=== PATIENT | female | born 1940 | race Caucasian/White ===

== ENCOUNTER 2018-03-13 13:08 | Inpatient (IN) | payer MEDICARE, BC ==
--- NOTE | 2018-03-13 13:31 | RADIOLOGY REPORT (SQ) ---
EXAM DESCRIPTION: CT HEAD WITHOUT COMPLETED DATE/TIME: 03/13/2018 1:17 pm REASON FOR STUDY: bed mp stroke alert COMPARISON: None. TECHNIQUE: Axial images acquired through the brain without intravenous contrast. Images reviewed wi th bone, brain and subdural windows. Additional sagittal and coronal reconstructions were generated. Images stored on PACS. All CT scanners at this facility use dose modulation, iterative reconstruction, and/or weight based d osing when appropriate to reduce radiation dose to as low as reasonably achievable (ALARA). [facility]: Dose Right [facility]: CareDose [facility]: Dose Right [facility]: Teradose 4D [facility]: [employer] RADIATION DOSE: CT Rad equipment meets quality standard of care and radiation dose reduction techniq ues were employed. CTDIvol: 53.2 mGy. DLP: 1017 mGy-cm. mGy. LIMITATIONS: None. FINDINGS: VENTRICLES: Normal size and contour. CEREBRUM: Bilateral occipital low low-attenuation, with loss of edwards-white junction and sulcal efface ment. These findings are worrisome for bilateral acute or early subacute infarcts, nonhemorrhagic. There is low attenuation in the right lateral thalamus, posterior limb internal capsule on axial imag e 18, which could also be a subacute infarct, nonhemorrhagic. Elsewhere, extensive low attenuation in the bilateral deep periventricular white matter is present wi th multiple lacunar infarcts in the basal ganglia and right thalamus likely chronic small vessel dise ase. No definite CT evidence of acute intracranial hemorrhage. No midline shift. Findings were discussed with Fanny Garay in the emergency room, 1318 hours 03/13/[address] strok e alert CEREBELLUM: Low attenuation in the left cerebellar hemisphere could represent a subacute nonhemorrhag ic infarct. No posterior fossa midline shift. 4th ventricle normal. EXTRAAXIAL SPACES: No fluid collections. No masses. ORBITS AND GLOBE: No intra- or extraconal masses. Normal contour of globe without masses. CALVARIUM: No fracture. PARANASAL SINUSES: No fluid or mucosal thickening. SOFT TISSUES: No mass or hematoma. OTHER: No other significant finding. IMPRESSION: Acute or early subacute posterior circulation infarcts in the left cerebellar hemisphere , bilateral occipital lobes, right lateral thalamus and posterior limb internal capsule. EVIDENCE OF ACUTE STROKE: Yes COMMENT: Pertinent findings on the imaging study reported as a CRITICAL RESULT to RETA CHRISTIE PPI at13:18 on 03/13/2018. Category of Critical Result: CT code stroke Quality ID # [id number]: Final reports with documentation of one or more dose reduction techniques (e.g., Au tomated exposure control, adjustment of the mA and/or kV according to patient size, use of iterative reconstruction technique) TECHNICAL DOCUMENTATION: JOB ID: [id number] [employer]- All Rights Reserved Reading location - IP/workstation name: [email or web address]
--- NOTE | 2018-03-13 13:42 | ER Document Report ---
ED Neuro Symptoms/Deficit - General Chief Complaint: S/S of Possible Stroke Stated Complaint: POSSIBLE STROKE Time Seen by Provider: 03/13/18 13:15 Mode of Arrival: Medic Information source: Patient, Relative Notes: Patient is a 78-year-old female with a history of multiple strokes who presents to the ER today for possible stroke. Patient has a history of hypertension, diabetes, hypothyroidism, spinal stenosis and GERD. Patient has some residual mild right-sided weakness from her history of multiple strokes. Patient is on Plavix and did take that today. Family member states that 3 days ago patient laid down for a nap and whenever she woke up she was very confused, generally weak all over and could not walk. Patient also had one episode of incontinence with her stool and urine. Patient had slurred speech and complained of a frontal headache. Family member states that she thought maybe it was some medication she takes as she does take Percocet for back pain due to her spinal stenosis, so she counted her medication and it did not seem like she had overdosed on anything. Family member states that intermittently she has been having episodes of this confusion, slurred speech, generalized weakness, and then for a few hours she will be "normal again." Family member states that today she woke up again confused complaining of a frontal headache, general weakness and could not walk around 8 AM this morning and so after a couple of hours that it did not resolve patient was brought to the emergency department by EMS. On arrival to the emergency department, patient's symptoms have all resolved and patient is alert and oriented 3 with no focal weakness, numbness or tingling. - Related Data Allergies/Adverse Reactions: Penicillins Allergy (Verified 03/13/18 14:42) Past Medical History - General Information source: Patient, Relative - Social History Smoking Status: Never Smoker Family History: Reviewed & Not Pertinent Review of Systems - Review of Systems Constitutional: No symptoms reported EENT: No symptoms reported Cardiovascular: No symptoms reported Respiratory: No symptoms reported Gastrointestinal: See HPI Genitourinary: See HPI Female Genitourinary: No symptoms reported Musculoskeletal: No symptoms reported Skin: No symptoms reported Hematologic/Lymphatic: No symptoms reported Neurological/Psychological: See HPI Physical Exam - Notes Notes: PHYSICAL EXAMINATION: GENERAL: Elderly, chronically ill-appearing, but in no acute distress. HEAD: Atraumatic, normocephalic. EYES: Pupils equal round and reactive to light, extraocular movements intact, sclera anicteric, conjunctiva are normal. ENT: ear canals without erythema or foreign body, TMs pearly montiel with good bony landmarks, nares patent, oropharynx clear without exudates. Moist mucous membranes. NECK: Normal range of motion, supple without lymphadenopathy LUNGS: CTAB and equal. No wheezes rales or rhonchi. HEART: Regular rate and rhythm without murmurs ABDOMEN: Soft, no tenderness. No guarding, no rebound BACK: no vertebral tenderness, normal ROM rectal: Decreased tone GI/: no CVA tenderness EXTREMITIES: Normal range of motion, no pitting edema. No cyanosis. NEUROLOGICAL: Mild right-sided weakness, otherwise cranial nerves grossly intact. Normal sensory/motor exams. Good and equal strength bilaterally, Kernig and Brudzinski's signs negative, Romberg's test normal, normal heel to dodd testing PSYCH: Normal mood, normal affect. SKIN: Warm, Dry, normal turgor, no rashes or lesions noted Course - Re-evaluation Re-evalutation: 03/13/18 15:46 Patient's NIH score is 0, neurological exam is normal except for chronic mild right-sided weakness. She has no facial droop. Initial head CT reveals an acute early subacute posterior circulation infarcts in the left cerebellar hemisphere, bilateral occipital lobes, right lateral thalamus and posterior limb internal capsule. CTA reports no large vessel occlusion. Chest x-ray normal today. Patient has had no further neurological symptoms here in the emergency department. She was able to stand and walk slowly to the bedside toilet. Patient refuses straight catheterization today. Patient is alert and oriented, answers questions appropriately. Daughter states that she is back to her baseline. I did initially have a concern for the spinal stenosis, story of acute incontinence with stool and urine, however upon further questioning it is clear that patient has had urinary and stool incontinence for some time. Patient had normal sensation on rectal exam today although decreased tone. She does not have any increased back pain. She has no numbness or tingling anywhere. I have low suspicion for cauda equina at this time and my attending agrees, and therefore MRI of the lumbar spine not performed at this time. Dr. Cuenca, hospitalist accepts admission at this time. Patient is not a candidate for TPA as her symptoms have all resolved and she is out of the 4-1/2 hour window. 03/13/18 17:07 03/13/18 17:10 03/13/18 17:55 - Laboratory Result Diagrams: 03/13/18 13:40 03/13/18 13:40 ED Alteplase Inc/Exc Criteria - Date/Time patient last known well: Date/Time: 3 days ago - Inclusion Criteria: 1: Patient presented to ED within 3 hours of acute ischemic stroke symptom onset ? -: No 2: Did baseline CT exclude intracranial hemorrhage and/or other risk factors? -: Yes 3: Is the age of the patient 18 years of age or greater? -: Yes : If any of the above questions are answered "NO" then stop, patient is not a candidate for Alteplase, : If all of the above questions are answered "YES" then continue with Exclusion Criteria. - Exclusion Criteria: 1: Is there evidence of intracranial hemorrhage on baseline CT? 2: Is there suspicion of subarachnoid hemorrhage (even if CT negative)? 3: Is there a history of serious head trauma, recent previous stroke or ID within 3 months? 4: Does the patient have a clinical presentation consistent with ID or post-ID pericarditis? 5: Is there history of intracranial hemorrhage? 6: On repeated measurement is Systolic BP greater than 185mmHg or Diastolic BP greater that 110 mmHg and is aggressive treatment needed to reduce blood pressure to these limits (e.g. constant infusion of an anti-hypertensive)? 7: Did the patient awake with stroke symptoms? 8: Has the patient had a lumbar puncture or an arterial puncture at a non- compressile site within 7 days? 9: With in the last 14 days did the patient have surgery or major trauma? 10: Is the patient or less than 2 weeks? 11: Was there any active bleeding or acute trauma? 12: Does the patient have intracranial neoplasm, arteriovenous malformation or aneurysm? 13: Does the patient have abnormal glucose (less than 50 or greater than 400mg/ dl)? Record glucose in Comment. 14: Patient has rapidly improving symptoms at the time Alteplase is to be Administered. 15: Does the patient have any risks for bleeding, including but not limited to: a.: Current use of Coumadin with PT greater than 15 seconds or INR greater than 1.7. b.: Current use of Pradaxa (Dabigatran). c.: Heparin administereed within the past 48 hours and PTT elevated. d.: Platelet count less than 100,000/mm. e.: Major surgery or serious trauma within 14 days. f.: Gastrointestinal or gynecological urinary bleeding within 14 days. g.: Myocardial Infarction (ID) within 3 months. : If the answer to any of the above questions is "YES" then stop, the patient is not a candidate for Alteplase. : If the answer to all of the above questions is "NO" then the patient may be eligible for the Administration of Alteplase. : If the patient is noted to have seizure activity at onset of Stroke symptoms; Consult Neurologist for further evaluation. - The patient is: -: Included and is eligible to receive Alteplase. *Initiate bed placement at higher level of care* Reviewd risks & benefits of thrombolytic therapy: I have reviewed the risks and benefits of thrombolytic therapy with the patient and/or his/her family. -: Excluded and not eligible to receive Alteplase for the above exclusions. -: Excluded and not eligible to receive Alteplase for other reasons (specify in comments): - Diagnosis of TIA: -: Patient presented with transient symptoms that are now resolved and no other neurologic findings are currently present. List symptoms in comments. -: Patient is NOT a candidate for tPA. -: ____(put name in comment) has been consulted for admission and continued evaluation of risk factor assessment. ED NIH Stroke Scale - NIH Stroke Scale *: 1. NIH scale should be completed with appropriate accompanying assessment tools. *: 2. The NIH should reflect what the patient is capable of doing and should not be coached by the clinician. 1a. Level of Consciousness: 0=Alert;keenly responsive -: 1=Drowsy -: 2=Obtunded -: 3=Coma/unresponsive or reflex to noxious stimuli. 1a. Responses: 0 1b. Orientation Questions: a. What month is it? -: b. How old are you? -: 0=Answers both questions correctly. -: 1=Answers one question correctly or patient is intubated or has orotracheal trauma. -: 2=Answers neither question correctly. 1b. Responses: 0 1c. Response to commands: a. Open and close eyes? -: b. Scow Derrick Operator and release hand? -: Credit is given despite weakness. Demonstration of task is permitted. Substitute command if hands cannot be used. -: 0=Performs both tasks correctly -: 1=Performs one task correctly -: 2=Performs neither task correctly 1c. Responses: 0 2. Gaze: Establish eye contact and instruct patient to "Follow my finger" -: 0=Normal -: 1=Partial gaze palsy. Gaze is abnormal in one or both eyes, but where forced deviation or total gaze paresis is not present. -: 2=Forced deviation or total gaze paresis. 2. Responses: 0 3. Visual [place]guiano: Sees fingers in all four quadrants. -: 0=No visual loss. -: 1=Partial hemianopsia. -: 2=Complete hemianopsia. -: 3=Bilateral hemianopsia (including Cortical blindness) 3. Responses: 0 4. Facial Movement: Instruct patient to: -: a. Show me your teeth -: b. Raise your eyebrows -: c. Close your eyes -: d. Smile -: 0=Normal symmetrical movement -: 1=Minor paralysis (flattened nasolabial fold, asymmetry on smiling). -: 2=Partial paralysis (total or near total paralysis of lower face). -: 3=Complete paralysis of upper and lower face 4. Responses: 0 5. Motor functions (left arm): Alternate sides and extend each arm with palms down (90 degrees if sitting or 45 degrees for supine). -: 0=No drift;limb holds for full 10 seconds. -: 1=Drift; limb holds but drifts down before full 10 seconds, but does not hit bed. -: 2=Some effort against gravity; limb cannot get to or maintain position. -: 3=No effort against gravity; limb falls. -: 4=No movement. -: UN=Amputation, joint fusion, explain in comments. 5. Responses (left arm): 0 5. Motor Functions (right arm): Alternate sides and extend each arm with palms down (90 degrees if sitting or 45 degrees for supine). -: 0=No drift;limb holds for full 10 seconds. -: 1=Drift; limb holds but drifts down before full 10 seconds, but does not hit bed. -: 2=Some effort against gravity; limb cannot get to or maintain position. -: 3=No effort against gravity; limb falls. -: 4=No movement. -: UN=Amputation, joint fusion, explain in comments. 5. Responses (right arm): 0 6. Motor Functions (left leg): With patient lying supine, alternate sides and extend each leg (30 degrees always while supine). -: 0=No drift, leg holds position for full 5 seconds -: 1=Drift; leg falls before full 5 seconds but does not hit bed. -: 2=Some effort against gravity, leg falls to bed but some effort against gravity. -: 3=No effort against gravity, leg falls to bed immediately. -: 4=No movement. -: UN=Amputation, joint fusion; explain in comments. 6. Responses (left leg): 0 6. Motor Functions (right leg): With patient lying supine, alternate sides and extend each leg (30 degrees always while supine). -: 0=No drift, leg holds position for full 5 seconds -: 1=Drift; leg falls before full 5 seconds but does not hit bed. -: 2=Some effort against gravity, leg falls to bed but some effort against gravity. -: 3=No effort against gravity, leg falls to bed immediately. -: 4=No movement. -: UN=Amputation, joint fusion; explain in comments. 6. Responses (right leg): 0 7. Limb Ataxia: With eyes open instruct patient to: -: a. "Touch your finger to your nose". -: b. "Touch your heel to your dodd" -: 0=Absent -: 1=Present in one limb. -: 2=Present in two limbs. -: UN=Amputation or joint fusion; explain in comments. 7. Responses: 0 8. Sensory: Test sensation using pinprick or noxious stimuli. Test as many body parts as possible. -: 0=Normal;no sensory loss -: 1=Mile to moderate sensory loss (patient feels pin prick but is less sharp on affected side). -: 2=Severe or total sensory loss. 8. Responses: 0 9. Best Language: Instruct patient to: -: a. "Describe what you see in this picture." -: b. "Name the items in this picture." -: c. "Read these sentences." -: 0=No aphasia, normal -: 1=Mild to moderate aphasia. -: 2=Severe aphasia -: 3=Mute, global aphasia, no usable speech or auditory comprehension. 9. Responses: 0 10. Articulation, Dysarthia: Instruct patient to: -: "Read these words" or "Repeat these words" -: 0=Normal -: 1=Mild to moderate; patient may slur some words but can be understood without difficulty. -: 2=Severe; patients speech so slurred as to be unintelligible in the absence of dysphasia. -: UN=Intubated or other physical barrier, explain in comments. 10. Responses: 0 11. Extinction or inattention: 0=No abnormality -: 1= Visual, tactile, auditory, spatial, or personal inattention or extinction to bilateral simulation in one or the sensory modalities. -: 2=Profound mick-inattention or mick-inattention to more than one modality; does not recognize own hand. 11. Responses: 0 Total Score: 0 Discharge - Discharge Clinical Impression: TIA (transient ischemic attack) Condition: Stable Disposition: ADMITTED INPATIENT Admitting Provider: Hospitalist - swayze Unit Admitted: Telemetry
--- NOTE | 2018-03-13 13:42 | RADIOLOGY REPORT (SQ) ---
EXAM DESCRIPTION: CHEST SINGLE VIEW COMPLETED DATE/TIME: 03/13/2018 1:19 pm REASON FOR STUDY: bed mp stroke alert COMPARISON: None. EXAM PARAMETERS: NUMBER OF VIEWS: One view. TECHNIQUE: Single frontal radiographic view of the chest acquired. RADIATION DOSE: NA LIMITATIONS: Artifact from clothing FINDINGS: LUNGS AND PLEURA: No opacities, masses or pneumothorax. No pleural effusion. MEDIASTINUM AND HILAR STRUCTURES: No masses. Contour normal. HEART AND VASCULAR STRUCTURES: Heart normal in size. Normal vasculature. BONES: No acute findings. HARDWARE: None in the chest. OTHER: No other significant finding. IMPRESSION: NO ACUTE RADIOGRAPHIC FINDING IN THE CHEST. TECHNICAL DOCUMENTATION: JOB ID: [id number] [employer]- All Rights Reserved Reading location - IP/workstation name: [email or web address]
[2018-03-13 14:24] LABS: ALANINE AMINOTRANSFERASE 19 U/L (9-52); ALBUMIN 4.1 g/dL (3.5-5.0); ALKALINE PHOSPHATASE 56 U/L (38-126); ANION GAP 13 (5-19); ASPARTATE AMINO TRANSFERASE 22 U/L (14-36); BILIRUBIN,DIRECT 0.5 mg/dL (0.0-0.4); BILIRUBIN,TOTAL 0.5 mg/dL (0.2-1.3); BLOOD UREA NITROGEN 13 mg/dL (7-20); CALCIUM 9.9 mg/dL (8.4-10.2); CARBON DIOXIDE 23 mmol/L (22-30); CHLORIDE 108 mmol/L (98-107); CREATINE KINASE 41 U/L (30-135); GLUCOSE 96 mg/dL (75-110); POTASSIUM 4.3 mmol/L (3.6-5.0); SODIUM 143.9 mmol/L (137-145); TOTAL PROTEIN 7.6 g/dL (6.3-8.2)
[2018-03-13 14:33] LABS: ABSOLUTE BASOPHILS # (AUTO) 0.1 10^3/uL (0.0-0.2); ABSOLUTE EOSINOPHILS # (AUTO) 0.1 10^3/uL (0.0-0.6); ABSOLUTE LYMPHOCYTES (AUTO) 1.6 10^3/uL (0.5-4.7); ABSOLUTE MONOCYTES (AUTO) 0.4 10^3/uL (0.1-1.4); ABSOLUTE NEUT (AUTO) 9.4 10^3/uL (1.7-8.2); BASOPHILS % (AUTO) 0.5 % (0-2); EOSINOPHILS % (AUTO) 0.5 % (0-6); HEMATOCRIT 40.3 % (36.0-47.0); HEMOGLOBIN 13.2 g/dL (12.0-15.5); LYMPHOCYTES % (AUTO) 13.7 % (13-45); MEAN CORPUSCULAR HEMOGLOBIN 30.3 pg (27.0-33.4); MEAN CORPUSCULAR HGB CONC 32.8 g/dL (32.0-36.0); MEAN CORPUSCULAR VOLUME 93 fl (80-97); MONOCYTES % (AUTO) 3.9 % (3-13); PLATELET COUNT 308 10^3/uL (150-450); RED BLOOD COUNT 4.35 10^6/uL (3.72-5.28); RED CELL DISTRIBUTION WIDTH 13.8 % (11.5-14.0); SEGMENTED NEUTROPHILS % (AUTO) 81.4 % (42-78); TOTAL CELLS COUNTED % (AUTO) 100 %; WHITE BLOOD COUNT 11.5 10^3/uL (4.0-10.5)
[2018-03-13 14:38] LABS: TROPONIN I < 0.012 ng/mL
[2018-03-13 15:02] LABS: INTERNATIONAL RATION (INR) 0.92; PROTHROMBIN TIME 12.8 SEC (11.4-15.4)
[2018-03-13 15:03] LABS: PARTIAL THROMBOPLASTIN TIME 25.3 SEC (23.5-35.8)
--- NOTE | 2018-03-13 15:38 | RADIOLOGY REPORT (SQ) ---
EXAM DESCRIPTION: CTA HEAD COMPLETED DATE/TIME: 03/13/2018 3:22 pm REASON FOR STUDY: subacute stroke on CT, large vessel occlusion? COMPARISON: CT brain 03/13/2018 TECHNIQUE: Post IV contrast scanning, thin section axial imaging through the brain to evaluate the a rterial structures. Source and MIP images are saved and reviewed on PACS. Advanced 3D imaging as volume-rendering, MIPs, SSD performed? yes All CT scanners at this facility use dose modulation, iterative reconstruction, and/or weight based d osing when appropriate to reduce radiation dose to as low as reasonably achievable (ALARA). [facility]: Dose Right [facility]: CareDose [facility]: Dose Right [facility]: Teradose 4D [facility]: [employer] CONTRAST TYPE AND DOSE: contrast/concentration: Isovue 370.00 mg/ml; Total Contrast Delivered: 70.0 ml; Total Saline Delivered: 72.0 ml RENAL FUNCTION: Creatinine 0.97 LIMITATIONS: None. FINDINGS: [place]: The anterior, middle, posterior cerebral arteries are all patent. No ev idence of aneurysm or focal stenosis. POSTERIOR CIRCULATION: The distal vertebral arteries are patent as is the basilar artery. Right vert ebral artery is dominant. Mild diffuse atherosclerotic change left vertebral artery intracranially. No aneurysm. BRAIN: No abnormal brain parenchymal enhancement. Low attenuation in the left occipital and posterio r temporal lobe, right posterior limb internal capsule, and left posterior frontal convexity. BONES: Intact as visualized. SINUSES: No fluid or mucosal thickening. OTHER: No other significant finding. IMPRESSION: No large vessel occlusion. TECHNICAL DOCUMENTATION: JOB ID: [id number] Quality ID # [id number]: Final reports with documentation of one or more dose reduction techniques (e.g., Au tomated exposure control, adjustment of the mA and/or kV according to patient size, use of iterative reconstruction technique) 2010 [employer]- All Rights Reserved Reading location - IP/workstation name: [email or web address]
[2018-03-13] MEDS ORDERED: OXYCODONE-ACETAMINOPHEN 5-325 MG TABLET PO ONE (15:47)
[2018-03-13 16:15] LABS: APPEARANCE,URINE CLEAR; BILIRUBIN,URINE NEGATIVE (NEGATIVE); COLOR,URINE YELLOW; GLUCOSE, URINE NEGATIVE (NEGATIVE); KETONES,URINE NEGATIVE (NEGATIVE); LEUKOCYTE ESTERASE,URINE NEGATIVE (NEGATIVE); NITRITE,URINE NEGATIVE (NEGATIVE); PROTEIN,URINE NEGATIVE (NEGATIVE); URINE SPECIFIC GRAVITY 1.016; UROBILINOGEN,URINE NEGATIVE mg/dL (<2.0)
[2018-03-13] MEDS ORDERED: ASPIRIN 81 MG TABLET, CHEWABLE PO ONE ×2 (16:55→22:15)
[2018-03-13] MEDS ORDERED: ACETAMINOPHEN 650 MG SUPP.RECT PR PRN (17:41)
--- NOTE | 2018-03-13 19:41 | PDOC H&P ---
History of Present Illness Admission Date/PCP: 03/13/18 17:23 Heather TAVERAS MD Patient complains of: Confusion, weakness, slurred speech. History of Present Illness: JESSI JENKINS is a 78 year old female. Her present illness started Monday after she awoke from a a nap. When she awoke, she was confused and weak. Her family thought that maybe she had taken too many of her narcotic pain meds. This continued intermittently through the weekend until the patient is now unable to stand on her own or go to the bathroom on her own. She carries a past medical history of previous strokes, hypertension, DM II, spinal stenosis, chronic back pain, hypothyroidism, and GERD. Past Medical History Cardiac Medical History: Reports: Hypertension Neurological Medical History: Reports: Ischemic CVA, Other - lumtiplel previous strokes with residual right sided weakness. Endocrine Medical History: Reports: Diabetes Mellitus Type 2 Past Surgical History Past Surgical History: Reports: Hysterectomy, Orthopedic Surgery - Bilat carpal tunnel release, Vascular Surgery - Stents Social History Smoking Status: Never Smoker Family History Family History: Reviewed & Not Pertinent Parental Family History Reviewed: Yes Children Family History Reviewed: Yes Sibling(s) Family History Reviewed.: Yes Medication/Allergy Allergies/Adverse Reactions: Penicillins Allergy (Verified 03/13/18 14:42) Review of Systems ROS unobtainable: Due to mental status Physical Exam Vital Signs: Temp Pulse Resp BP Pulse Ox 98.9 F 97 20 133/62 H 96 03/13/18 14:00 03/13/18 15:00 03/13/18 16:00 03/13/18 15:00 03/13/18 16:00 General appearance: PRESENT: no acute distress, cooperative, other - Confused. Head exam: PRESENT: atraumatic, normocephalic Eye exam: PRESENT: conjunctiva pink, EOMI, PERRLA, other - No scleral icterusor injectino Ear exam: PRESENT: normal external ear exam Mouth exam: PRESENT: moist, other - tongue deviates to the left. Throat exam: ABSENT: post pharyngeal erythema, tonsillar erythema, tonsillar exudate Neck exam: ABSENT: carotid bruit, lymphadenopathy, meningismus, tenderness, thyromegaly, tracheal deviation Respiratory exam: PRESENT: other - No increased work of breathing. No wheezes, rales, or rhonchi. No tactile fremitus. Cardiovascular exam: PRESENT: RRR, other - No lateral PMI. No thrills.. ABSENT : diastolic murmur, gallop, rubs, systolic murmur Pulses: PRESENT: normal carotid pulses, other - Diminished distal pulses. GI/Abdominal exam: PRESENT: normal bowel sounds, soft. ABSENT: distended, hernia, mass, organolmegaly, tenderness Extremities exam: ABSENT: joint swelling, tenderness Musculoskeletal exam: PRESENT: normal inspection. ABSENT: ambulatory Neurological exam: PRESENT: alert, oriented to situation, CN II-XII grossly intact, motor sensory deficit - weakness on the right., other - confused. ABSENT: normal gait Psychiatric exam: PRESENT: appropriate affect, normal mood Results Impressions: Chest X-Ray 03/13/18 13:09 IMPRESSION: NO ACUTE RADIOGRAPHIC FINDING IN THE CHEST. Head CT 03/13/18 13:09 IMPRESSION: Acute or early subacute posterior circulation infarcts in the left cerebellar hemisphere, bilateral occipital lobes, right lateral thalamus and posterior limb internal capsule. EVIDENCE OF ACUTE STROKE: Yes Head CTA 03/13/18 13:41 IMPRESSION: No large vessel occlusion. Assessment & Plan - Diagnosis (1) Acute CVA (cerebrovascular accident) Is this a current diagnosis for this admission?: Yes Plan: Stroke work up. PT/OT. (2) Hypertension Qualifiers: Hypertension type: essential hypertension Qualified Code(s): I10 - Essential (primary) hypertension Is this a current diagnosis for this admission?: Yes Plan: Continue home antihypertensives. This is stroke has been read out as acute/ subacute. More than likely it actually took place on Monday. I feel that we are outside the window where a liberal approach to blood pressures is helpful. (3) Encephalopathy Is this a current diagnosis for this admission?: Yes Plan: Secondary to CVA. Waxing and waning. (4) DM II (diabetes mellitus, type II), controlled Qualifiers: Diabetes mellitus regional intermodal truck driver insulin use: without regional intermodal truck driver use Diabetes mellitus complication status: with circulatory complication Diabetes mellitus complication detail: with other circulatory complications Qualified Code(s): E11.59 - Type 2 diabetes mellitus with other circulatory complications Is this a current diagnosis for this admission?: Yes Plan: FSBS and SSI. Hypoglycemic protocol. Diabetic diet. (5) Hypothyroidism (acquired) Is this a current diagnosis for this admission?: Yes Plan: Continue levothyroxine as at home. (6) Spinal stenosis Is this a current diagnosis for this admission?: Yes Plan: Continue home medications for pain. (7) Chronic pain Qualifiers: Chronic pain type: chronic pain syndrome Qualified Code(s): G89.4 - Chronic pain syndrome Is this a current diagnosis for this admission?: Yes Plan: Continue home medications for pain. - Time Time Spent: 50 to 70 Minutes Medications reviewed and adjusted accordingly: Yes Anticipated discharge: SNF Within: within 48 hours
[2018-03-13] MEDS ORDERED: DEXTROSE 40% GEL 15 GM TUBE PO PRN ×2 (19:42)
[2018-03-13] MEDS ORDERED: GLUCAGON,HUMAN RECOMB 1 MG INJ IM PRN (19:42)
[2018-03-13] MEDS ORDERED: DEXTROSE 50%-WATER 25 GM/50 ML DISP.SYRIN IV PRN ×2 (19:42)
--- NOTE | 2018-03-13 20:41 | EKG REPORT ---
SEVERITY:- NORMAL ECG - SINUS RHYTHM : Confirmed by: Zahida Johnson MD 13-Mar-2018 20:41:18
[2018-03-13] MEDS ORDERED: LANSOPRAZOLE 30 MG TAB.RAP.DR PO ONE (22:15)
[2018-03-13] MEDS: TRAMADOL HCL 50 MG TABLET PO PRN (22:30)
[2018-03-14] MEDS: TRAMADOL HCL 50 MG TABLET PO PRN ×3 (04:48→20:09)
[2018-03-14 04:56] LABS: ABSOLUTE BASOPHILS # (AUTO) 0.1 10^3/uL (0.0-0.2); ABSOLUTE EOSINOPHILS # (AUTO) 0.1 10^3/uL (0.0-0.6); ABSOLUTE LYMPHOCYTES (AUTO) 2.7 10^3/uL (0.5-4.7); ABSOLUTE MONOCYTES (AUTO) 0.6 10^3/uL (0.1-1.4); ABSOLUTE NEUT (AUTO) 5.8 10^3/uL (1.7-8.2); BASOPHILS % (AUTO) 0.8 % (0-2); EOSINOPHILS % (AUTO) 0.7 % (0-6); HEMOGLOBIN 12.3 g/dL (12.0-15.5); LYMPHOCYTES % (AUTO) 29.2 % (13-45); MEAN CORPUSCULAR HEMOGLOBIN 30.7 pg (27.0-33.4); MEAN CORPUSCULAR VOLUME 90 fl (80-97); MONOCYTES % (AUTO) 6.4 % (3-13); PLATELET COUNT 288 10^3/uL (150-450); RED CELL DISTRIBUTION WIDTH 13.7 % (11.5-14.0); SEGMENTED NEUTROPHILS % (AUTO) 62.9 % (42-78); TOTAL CELLS COUNTED % (AUTO) 100 %; WHITE BLOOD COUNT 9.3 10^3/uL (4.0-10.5)
[2018-03-14 05:18] LABS: ANION GAP 10 (5-19); BLOOD UREA NITROGEN 11 mg/dL (7-20); CALCIUM 9.4 mg/dL (8.4-10.2); CARBON DIOXIDE 22 mmol/L (22-30); CHLORIDE 111 mmol/L (98-107); GLUCOSE 72 mg/dL (75-110); POTASSIUM 3.6 mmol/L (3.6-5.0); SODIUM 143.1 mmol/L (137-145)
[2018-03-14] MEDS: LANSOPRAZOLE 30 MG TAB.RAP.DR PO SCH ×2 (08:32→15:25)
[2018-03-14] MEDS: CLOPIDOGREL BISULFATE 75 MG TABLET PO SCH (10:05)
[2018-03-14] MEDS: VERAPAMIL HCL 240 MG TABLET.SA PO SCH (10:06)
[2018-03-14] MEDS: ASPIRIN 81 MG TABLET, ENT COATED PO SCH (10:06)
[2018-03-14] MEDS: ENOXAPARIN SODIUM INJ 30 MG/0.3 ML DISP.SYRIN SUBCUT SCH (10:08)
--- NOTE | 2018-03-14 17:13 | PDOC PROGRESS REPORT ---
Subjective Progress Note for:: 03/14/18 Subjective:: The patient is complaining of pain and being unable to sleep at night. Reason For Visit: ACUTE CVA Physical Exam Vital Signs: Temp Pulse Resp BP Pulse Ox 98.9 F 79 16 141/56 H 95 03/14/18 15:23 03/14/18 15:23 03/14/18 15:23 03/14/18 15:23 03/14/18 15:23 Pulse Oximeter Continuous Start: 03/13/18 17: 44 Freq: RTQ4 Status: Complete Document 03/14/18 08:00 LDA (Rec: 03/14/18 08:34 LDA [email or web address]) Pulse Oximetry Assessment Oxygen Saturation (92-100) 95 Oxygen Delivery Method Room Air Fraction of Inspired Oxygen (FIO2) 21 Equipment Usage Equipment in Use Continuous SpO2 Machine # [id number] Intake & Output 03/13/18 03/14/18 03/15/18 06:59 06:59 06:59 Intake Total 121 Balance 121 Weight 66.3 kg General appearance: PRESENT: no acute distress Neck exam: ABSENT: JVD, lymphadenopathy, meningismus, thyromegaly Respiratory exam: PRESENT: other - No increased work of breathing. No wheezes, rales, or rhonchi. No tactile fremitus. Cardiovascular exam: PRESENT: other - RRR without murmurs, ectopy, or gallups. No lateral PMI. No thrills. Pulses: PRESENT: normal carotid pulses, other - Diminished distal pulses. Vascular exam: PRESENT: pallor GI/Abdominal exam: PRESENT: normal bowel sounds, soft. ABSENT: guarding, hernia , mass, organolmegaly, tenderness Extremities exam: PRESENT: full ROM. ABSENT: clubbing, tenderness, +1 edema Musculoskeletal exam: ABSENT: deformity Neurological exam: PRESENT: alert, oriented to person, oriented to place, oriented to time, oriented to situation, other - Right sided weakness.. ABSENT : CN II-XII grossly intact Psychiatric exam: PRESENT: appropriate affect, normal mood Skin exam: PRESENT: dry, intact, warm Results Laboratory Results: 03/14/18 03:43 03/14/18 03:43 03/14/18 03/14/18 03:43 03:43 WBC 9.3 RBC 4.00 Hgb 12.3 Hct 36.0 MCV 90 MCH 30.7 MCHC 34.0 RDW 13.7 Plt Count 288 Seg Neutrophils % 62.9 Lymphocytes % 29.2 Monocytes % 6.4 Eosinophils % 0.7 Basophils % 0.8 Absolute Neutrophils 5.8 Absolute Lymphocytes 2.7 Absolute Monocytes 0.6 Absolute Eosinophils 0.1 Absolute Basophils 0.1 Sodium 143.1 Potassium 3.6 Chloride 111 H Carbon Dioxide 22 Anion Gap 10 BUN 11 Creatinine 0.88 Est GFR ( Amer) > 60 Est GFR (Non-Af Amer) > 60 Glucose 72 L Calcium 9.4 Impressions: Chest X-Ray 03/13/18 13:09 IMPRESSION: NO ACUTE RADIOGRAPHIC FINDING IN THE CHEST. Head CT 03/13/18 13:09 IMPRESSION: Acute or early subacute posterior circulation infarcts in the left cerebellar hemisphere, bilateral occipital lobes, right lateral thalamus and posterior limb internal capsule. EVIDENCE OF ACUTE STROKE: Yes Head CTA 03/13/18 13:41 IMPRESSION: No large vessel occlusion. Assessment & Plan - Diagnosis (1) Acute CVA (cerebrovascular accident) Is this a current diagnosis for this admission?: Yes Plan: Stroke work-up in place. PT has evaluated the patient and has determined that she will require SNF placement. (2) Hypertension Qualifiers: Hypertension type: essential hypertension Qualified Code(s): I10 - Essential (primary) hypertension Is this a current diagnosis for this admission?: Yes Plan: Continue home antihypertensives. (3) Encephalopathy Is this a current diagnosis for this admission?: Yes Plan: Still occasionally confused. (4) DM II (diabetes mellitus, type II), controlled Qualifiers: Diabetes mellitus mcfp insulin use: without manager intermediate use Diabetes mellitus complication status: with circulatory complication Diabetes mellitus complication detail: with other circulatory complications Qualified Code(s): E11.59 - Type 2 diabetes mellitus with other circulatory complications Is this a current diagnosis for this admission?: Yes Plan: FSBS over the last 24 hours has ranged from 82 to 103. (5) Hypothyroidism (acquired) Is this a current diagnosis for this admission?: Yes Plan: Continue levothyroxine (6) Spinal stenosis Is this a current diagnosis for this admission?: Yes Plan: Chronic. Continue pain medications as at home. (7) Chronic pain Qualifiers: Chronic pain type: chronic pain syndrome Qualified Code(s): G89.4 - Chronic pain syndrome Is this a current diagnosis for this admission?: Yes Plan: Continue pain medications as at home. - Time Time Spent with patient: 25-34 minutes Medications reviewed and adjusted accordingly: Yes Anticipated discharge: SNF Within: within 48 hours - Inpatient Certification Based on my medical assessment, after consideration of the patient's comorbidities, presenting symptoms, or acuity I expect that the services needed warrant INPATIENT care.: Yes I certify that my determination is in accordance with my understanding of Medicare's requirements for reasonable and necessary INPATIENT services [42 CFR 412.3e].: Yes Medical Necessity: Need Close Monitoring Due to Risk of Patient Decompensation, Need for Neurological Checks
--- NOTE | 2018-03-14 18:44 | XCELERA REPORT ---
[address] [address] Transthoracic Echocardiogram Report Name: JESSI JENKINS Age: 78 yrs Gender: Female : 1940 Patient Status: Inpatient Patient Location: [address] [place] [address] Study Date: 03/14/2018 09:16 AM Procedure: A two-dimensional transthoracic echocardiogram with color flow and Doppler was performed. Study Quality: Technically suboptimal. The study was technically difficult with many images being suboptimal in quality. Reason For Study: CVA History: CVA. Ordering Physician: KRISTINA VILLEGAS Performed By: Kami Okeefe Interpretation Summary There is no obvious cardiac source of embolus noted on this transthoracic echocardiogram. Follow-up with a [facility]ERARD is suggested if cardiac source is still suspected. The left ventricle is normal in size. There is normal left ventricular wall thickness. LV EF is > than 60% Not a good echo to assess for Thrombus. The right ventricle is not well visualized secondary to technical limitations Right atrium not well visualized secondary to technical limitations The left atrial size is normal. There is no evidence of mitral valve prolapse. There is no mitral valve stenosis. There is no mitral regurgitation noted. There is no aortic valve stenosis There is no LVOT obstruction. No aortic regurgitation is present. There is no tricuspid stenosis. No tricuspid regurgitation. Unable to calculate RVSP due to insufficient TR jet. There is no pericardial effusion. There is no obvious cardiac source of embolus noted on this transthoracic echocardiogram. Follow-up with a GERARD is suggested if cardiac source is still suspected MMode/2D Measurements & Calculations RVDd: 2.6 cm LVIDd: 4.4 cm FS: 38.7 % IVSd: 0.77 cm LVIDs: 2.7 cm EDV(Teich): 88.4 ml LVPWd: 0.83 cm ESV(Teich): 27.2 ml EF(Teich): 69.2 % Doppler Measurements & Calculations Ao V2 max: 133.9 cm/sec LV V1 max P.9 mmHg PA V2 max: 109.7 cm/sec Ao max P.2 mmHg LV V1 max: 85.4 cm/sec PA max P.8 mmHg Left Ventricle The left ventricle is normal in size. There is normal left ventricular wall thickness. LV EF is > than 60%. Left ventricular systolic function is normal. Doppler measurements suggest pseudonormalized left ventricular relaxation, which is associated with grade II/IV or mild to moderate diastolic dysfunction. The left ventricular wall motion is normal. Not a good echo to assess for Thrombus. Right Ventricle The right ventricle is not well visualized secondary to technical limitations. Atria Right atrium not well visualized secondary to technical limitations. The left atrial size is normal. Mitral Valve There is no evidence of mitral valve prolapse. There is no vegetation seen on the mitral valve. There is no mitral valve stenosis. There is no mitral regurgitation noted. Aortic Valve There is no aortic valve stenosis. There is no LVOT obstruction. No aortic regurgitation is present. Tricuspid Valve There is no tricuspid stenosis. No tricuspid regurgitation. Unable to calculate RVSP due to insufficient TR jet. Pulmonic Valve The pulmonic valve is not well visualized. Great Vessels The aortic root is not well visualized. Effusions There is no pericardial effusion. : KRISTINA VILLEGAS > Zahida Johnson
--- NOTE | 2018-03-14 21:30 | EKG REPORT ---
SEVERITY:- NORMAL ECG - SINUS RHYTHM : Confirmed by: Zahida Johnson MD 14-Mar-2018 21:28:51
[2018-03-14] MEDS: OXYCODONE-ACETAMINOPHEN 5-325 MG TABLET PO SCH (21:38)
[2018-03-14] MEDS ORDERED: (PENDING PHARMACY ID) (Oxycodone Hcl/Acetaminophen [Endocet 10-325 Mg Tablet] 1 TAB) PO SCH (22:00)
[2018-03-14] MEDS: INSULIN REG, HUMAN 100 UNIT/ML 3 ML VIAL (PYX) SUBCUT PRN (22:10)
[2018-03-15] MEDS: TRAMADOL HCL 50 MG TABLET PO PRN ×3 (05:40→23:43)
[2018-03-15] MEDS ORDERED: LORAZEPAM INJ 2 MG/1 ML VIAL IV PRN (08:14)
[2018-03-15] MEDS: LANSOPRAZOLE 30 MG TAB.RAP.DR PO SCH ×2 (08:47→16:12)
[2018-03-15] MEDS: OXYCODONE-ACETAMINOPHEN 5-325 MG TABLET PO SCH ×2 (09:29→21:17)
[2018-03-15] MEDS: ENOXAPARIN SODIUM INJ 30 MG/0.3 ML DISP.SYRIN SUBCUT SCH (09:29)
[2018-03-15] MEDS: CLOPIDOGREL BISULFATE 75 MG TABLET PO SCH (09:30)
[2018-03-15] MEDS: VERAPAMIL HCL 240 MG TABLET.SA PO SCH (09:30)
[2018-03-15] MEDS: ASPIRIN 81 MG TABLET, ENT COATED PO SCH (09:30)
[2018-03-15] MEDS: EZETIMIBE 10 MG TABLET PO SCH (09:31)
[2018-03-15] MEDS ORDERED: CLOPIDOGREL BISULFATE 75 MG TABLET PO SCH (10:00)
[2018-03-15] MEDS: INSULIN REG, HUMAN 100 UNIT/ML 3 ML VIAL (PYX) SUBCUT PRN (13:30)
--- NOTE | 2018-03-15 14:16 | PDOC PROGRESS REPORT ---
Subjective Progress Note for:: 03/15/18 Subjective:: The patient is without new complaints. Reason For Visit: ACUTE CVA Physical Exam Vital Signs: Temp Pulse Resp BP Pulse Ox 98.3 F 73 16 113/45 L 96 03/15/18 12:02 03/15/18 12:02 03/15/18 12:02 03/15/18 12:02 03/15/18 12:02 General appearance: PRESENT: no acute distress, well-nourished Neck exam: PRESENT: full ROM. ABSENT: JVD, lymphadenopathy, meningismus, tenderness, thyromegaly Respiratory exam: ABSENT: rales, rhonchi, wheezes Cardiovascular exam: PRESENT: RRR, other - No lateral PMI. No thrills.. ABSENT : gallop, rubs, systolic murmur Pulses: PRESENT: normal carotid pulses, other - Diminished distal pulses. GI/Abdominal exam: PRESENT: normal bowel sounds, soft. ABSENT: distended, hernia, mass, organolmegaly, tenderness Extremities exam: ABSENT: calf tenderness, pedal edema Neurological exam: PRESENT: alert, awake, oriented to person, oriented to place , oriented to time, oriented to situation, other - Right sided hemiplegia Psychiatric exam: PRESENT: appropriate affect, normal mood Skin exam: PRESENT: dry, intact, warm Results Impressions: Chest X-Ray 03/13/18 13:09 IMPRESSION: NO ACUTE RADIOGRAPHIC FINDING IN THE CHEST. Head CT 03/13/18 13:09 IMPRESSION: Acute or early subacute posterior circulation infarcts in the left cerebellar hemisphere, bilateral occipital lobes, right lateral thalamus and posterior limb internal capsule. EVIDENCE OF ACUTE STROKE: Yes Head CTA 03/13/18 13:41 IMPRESSION: No large vessel occlusion. Assessment & Plan - Diagnosis (1) Acute CVA (cerebrovascular accident) Is this a current diagnosis for this admission?: Yes Plan: Stroke work-up in place. PT has evaluated the patient and has determined that she will require SNF placement. Echocardiogram does not reveal cardiac source of embolus. MRI is pending. CTA head and neck did not demonstrate any hemodynamically significant stenosis or unstable plaque. Awaiting SNF placement. (2) Hypertension Qualifiers: Hypertension type: essential hypertension Qualified Code(s): I10 - Essential (primary) hypertension Is this a current diagnosis for this admission?: Yes Plan: Continue home antihypertensives. (3) Encephalopathy Is this a current diagnosis for this admission?: Yes Plan: Still occasionally confused, but this morning the patient seems clearer. (4) DM II (diabetes mellitus, type II), controlled Qualifiers: Diabetes mellitus skilled nursing insulin use: without terminal gauger use Diabetes mellitus complication status: with circulatory complication Diabetes mellitus complication detail: with other circulatory complications Qualified Code(s): E11.59 - Type 2 diabetes mellitus with other circulatory complications Is this a current diagnosis for this admission?: Yes Plan: FSBS well controlled on current regimen. (5) Hypothyroidism (acquired) Is this a current diagnosis for this admission?: Yes Plan: Continue levothyroxine (6) Spinal stenosis Is this a current diagnosis for this admission?: Yes Plan: Chronic. Continue pain medications as at home. (7) Chronic pain Qualifiers: Chronic pain type: chronic pain syndrome Qualified Code(s): G89.4 - Chronic pain syndrome Is this a current diagnosis for this admission?: Yes - Time Time Spent with patient: 25-34 minutes Medications reviewed and adjusted accordingly: Yes Anticipated discharge: SNF Within: within 24 hours, when bed available
[2018-03-15] MEDS: ACETAMINOPHEN 325 MG TABLET PO PRN (16:38)
[2018-03-16 04:32] LABS: HEMATOCRIT 37.1 % (36.0-47.0); HEMOGLOBIN 12.6 g/dL (12.0-15.5); MEAN CORPUSCULAR HGB CONC 33.9 g/dL (32.0-36.0); MEAN CORPUSCULAR VOLUME 91 fl (80-97); PLATELET COUNT 308 10^3/uL (150-450); RED BLOOD COUNT 4.06 10^6/uL (3.72-5.28); RED CELL DISTRIBUTION WIDTH 13.8 % (11.5-14.0); WHITE BLOOD COUNT 8.6 10^3/uL (4.0-10.5)
[2018-03-16 04:41] LABS: ANION GAP 13 (5-19); BLOOD UREA NITROGEN 13 mg/dL (7-20); CALCIUM 9.7 mg/dL (8.4-10.2); CARBON DIOXIDE 22 mmol/L (22-30); CHLORIDE 108 mmol/L (98-107); GLUCOSE 145 mg/dL (75-110); POTASSIUM 3.4 mmol/L (3.6-5.0); SODIUM 142.5 mmol/L (137-145)
[2018-03-16] MEDS: LANSOPRAZOLE 30 MG TAB.RAP.DR PO SCH ×2 (08:38→15:29)
[2018-03-16] MEDS: ASPIRIN 81 MG TABLET, ENT COATED PO SCH (10:31)
[2018-03-16] MEDS: OXYCODONE-ACETAMINOPHEN 5-325 MG TABLET PO SCH ×2 (10:32→21:29)
[2018-03-16] MEDS: CLOPIDOGREL BISULFATE 75 MG TABLET PO SCH (10:32)
[2018-03-16] MEDS: EZETIMIBE 10 MG TABLET PO SCH (10:32)
[2018-03-16] MEDS: ENOXAPARIN SODIUM INJ 30 MG/0.3 ML DISP.SYRIN SUBCUT SCH (10:33)
[2018-03-16] MEDS: VERAPAMIL HCL 240 MG TABLET.SA PO SCH (10:33)
--- NOTE | 2018-03-16 10:33 | PDOC TRANSFER SUMMARY ---
General Admission Date/PCP: 03/15/18 10:52 Heather TAVERAS MD Resuscitation Status: Full Code - Transfer Diagnosis (1) Acute CVA (cerebrovascular accident) Is this a current diagnosis for this admission?: Yes (2) Hypertension Is this a current diagnosis for this admission?: Yes (3) Encephalopathy Is this a current diagnosis for this admission?: Yes (4) DM II (diabetes mellitus, type II), controlled Is this a current diagnosis for this admission?: Yes (5) Hypothyroidism (acquired) Is this a current diagnosis for this admission?: Yes (6) Spinal stenosis Is this a current diagnosis for this admission?: Yes (7) Chronic pain Is this a current diagnosis for this admission?: Yes - Transfer Medications Home Medications: Clopidogrel Bisulfate [Plavix 75 mg Tablet] 75 mg PO DAILY 03/13/18 Desvenlafaxine [Desvenlafaxine ER] 100 mg PO DAILY 03/13/18 Furosemide [Lasix 20 mg Tablet] 20 mg PO DAILY 03/13/18 Oxycodone HCl/Acetaminophen [Endocet 10-325 mg Tablet] 1 tab PO Q12 03/13/18 Pantoprazole Sodium [Protonix] 40 mg PO BIDACBS 03/13/18 Tramadol HCl [Ultram 50 mg Tablet] 50 mg PO Q6HP PRN 03/13/18 Verapamil HCl [Verapamil ER] 240 mg PO DAILY 03/13/18 Transfer Medications: Current Medications Acetaminophen (Tylenol 325 Mg Tablet) 650 mg PO Q4HP PRN PRN Reason: PAIN OR FEVER Stop: 04/14/18 16:10 Last Admin: 03/15/18 16:38 Dose: 650 mg Aspirin (Ecotrin 81 Mg Ec Tablet) 81 mg PO DAILY GALINA Stop: 04/13/18 09:59 Last Admin: 03/15/18 09:30 Dose: 81 mg Clopidogrel Bisulfate (Plavix 75 Mg Tablet) 75 mg PO DAILY GALINA Stop: 04/13/18 09:59 Last Admin: 03/15/18 09:30 Dose: 75 mg Dextrose (Dextrose Inj 50% Syringe (25 Gm/50 Ml)) 12.5 gm IV PRN PRN; Protocol PRN Reason: FOR BG 50-69 IN ALERT PATIENT Stop: 04/12/18 19:41 Dextrose (Dextrose Inj 50% Syringe (25 Gm/50 Ml)) 25 gm IV PRN PRN; Protocol PRN Reason: PER PROTOCOL Stop: 04/12/18 19:41 Ezetimibe (Zetia 10 Mg Tablet) 10 mg PO DAILY GALINA Stop: 04/14/18 09:59 Last Admin: 03/15/18 09:31 Dose: 10 mg Enoxaparin Sodium (Lovenox Inj 30 Mg/0.3 Ml Disp.Syrin) 30 mg SUBCUT DAILY GALINA Stop: 04/13/18 09:59 Last Admin: 03/15/18 09:29 Dose: 30 mg Glucagon (Glucagen Inj 1 Mg Vial) 1 mg IM PRN PRN; Protocol PRN Reason: Evaluate for BG < 70 Stop: 04/12/18 19:41 Glucose (Glutose 40% Gel 15 Gm Tube) 15 gm PO PRN PRN; Protocol PRN Reason: FOR BG 50-69 IN ALERT PATIENT Stop: 04/12/18 19:41 Glucose (Glutose 40% Gel 15 Gm Tube) 30 gm PO PRN PRN; Protocol PRN Reason: FOR BG < 50 IN ALERT PATIENT Stop: 04/12/18 19:41 Insulin Human Regular (Humulin R (Pyxis) Insulin 100 Unit/Ml 3ml) 0 - 12 unit SUBCUT ACHSP PRN; Protocol PRN Reason: PER PROTOCOL Stop: 04/12/18 19:41 Last Admin: 03/15/18 13:30 Dose: 2 unit Lansoprazole (Prevacid 30 Mg Odt Tablet) 30 mg PO BIDACBS GALINA Stop: 04/13/18 07:59 Last Admin: 03/16/18 08:38 Dose: 30 mg Oxycodone/Acetaminophen (Percocet 5-325 Mg Tablet) 1 tab PO Q12 GALINA Stop: 03/21/18 21:59 Last Admin: 03/15/18 21:17 Dose: 1 tab Patient Own Medication (Desvenlafaxine [Desvenlafaxine Er]) 100 mg PO DAILY GALINA Stop: 04/14/18 09:59 Sodium Chloride (Saline Flush 2.5 Ml Monoject Prefil Syrin) 2.5 ml IV Q8 GALINA Stop: 04/12/18 21:59 Last Admin: 03/16/18 05:22 Dose: 2.5 ml Tramadol HCl (Ultram 50 Mg Tablet) 50 mg PO Q6HP PRN PRN Reason: FOR PAIN Stop: 03/20/18 21:53 Last Admin: 03/15/18 23:43 Dose: 50 mg Verapamil HCl (Calan Sr 240 Mg Tablet.Sa) 240 mg PO DAILY GALINA Stop: 04/13/18 09:59 Last Admin: 03/15/18 09:30 Dose: 240 mg - Allergies Allergies/Adverse Reactions: Penicillins Allergy (Verified 03/13/18 14:42) [id number] Reductase Inhibitor Allergy (Verified 03/13/18 21:38) - Diet/Activity Discharge Diet: Diabetic Hospital Course Hospital Course: The patient was admitted through the ED at [facility] on 2017 with a diagnosis of acute CVA with encephalopathy. She has undergone a stroke work up which was negative. She has known cerebrovascular disease and has had several strokes in the past. The recommendation of PT is that she be discharged to rehab. She is appropriate for discharge to a facility today. Physical Exam Vital Signs: Temp Pulse Resp BP Pulse Ox 97.8 F 86 16 148/64 H 98 03/16/18 08:00 03/16/18 08:00 03/16/18 08:00 03/16/18 08:00 03/16/18 08:00 Intake & Output 03/15/18 03/16/18 03/17/18 06:59 06:59 06:59 Intake Total 1483 Balance 1483 Weight 65.1 kg General appearance: PRESENT: no acute distress, well-developed, well-nourished Eye exam: ABSENT: scleral icterus Neck exam: ABSENT: carotid bruit, JVD, lymphadenopathy, thyromegaly Respiratory exam: PRESENT: other - No increaed work of breathing. No tactile fremitus.. ABSENT: rales, rhonchi, wheezes Cardiovascular exam: PRESENT: RRR. ABSENT: diastolic murmur, rubs, systolic murmur Pulses: PRESENT: normal femoral pulses, normal dorsalis pedis pul Vascular exam: PRESENT: normal capillary refill GI/Abdominal exam: PRESENT: normal bowel sounds, soft. ABSENT: distended, guarding, mass, organolmegaly, rebound, tenderness Rectal exam: PRESENT: deferred Extremities exam: PRESENT: full ROM. ABSENT: calf tenderness, clubbing, pedal edema Neurological exam: PRESENT: alert, awake, oriented to person, oriented to place , oriented to time, oriented to situation, CN II-XII grossly intact. ABSENT: motor sensory deficit Psychiatric exam: PRESENT: appropriate affect, normal mood. ABSENT: homicidal ideation, suicidal ideation Skin exam: PRESENT: dry, intact, warm. ABSENT: cyanosis, rash Results Laboratory Results: 03/16/18 03:37 03/16/18 03:37 03/16/18 03/16/18 03:37 03:37 WBC 8.6 RBC 4.06 Hgb 12.6 Hct 37.1 MCV 91 MCH 31.0 MCHC 33.9 RDW 13.8 Plt Count 308 Sodium 142.5 Potassium 3.4 L Chloride 108 H Carbon Dioxide 22 Anion Gap 13 BUN 13 Creatinine 1.02 Est GFR ( Amer) > 60 Est GFR (Non-Af Amer) 53 L Glucose 145 H Calcium 9.7 Impressions: Chest X-Ray 03/13/18 13:09 IMPRESSION: NO ACUTE RADIOGRAPHIC FINDING IN THE CHEST. Head CT 03/13/18 13:09 IMPRESSION: Acute or early subacute posterior circulation infarcts in the left cerebellar hemisphere, bilateral occipital lobes, right lateral thalamus and posterior limb internal capsule. EVIDENCE OF ACUTE STROKE: Yes Head CTA 03/13/18 13:41 IMPRESSION: No large vessel occlusion. Plan Discharge Plan: Discharge to rehab. Time Spent: Greater than 30 Minutes
[2018-03-16] MEDS: TRAMADOL HCL 50 MG TABLET PO PRN ×2 (13:09→19:10)
--- NOTE | 2018-03-16 13:15 | PDOC PROGRESS REPORT ---
Subjective Progress Note for:: 03/16/18 Subjective:: The patient is resting comfortably. No new complaints. Reason For Visit: ACUTE CVA Physical Exam Vital Signs: Temp Pulse Resp BP Pulse Ox 97.8 F 100 14 115/60 98 03/16/18 08:00 03/16/18 12:11 03/16/18 12:11 03/16/18 12:11 03/16/18 12:11 Intake & Output 03/15/18 03/16/18 03/17/18 06:59 06:59 06:59 Intake Total 1483 Balance 1483 Weight 65.1 kg General appearance: PRESENT: no acute distress, obese Neck exam: PRESENT: carotid bruit, JVD, lymphadenopathy, thyromegaly Respiratory exam: PRESENT: other - No increased work of breathing. No wheezes, rales, or rhonchi. No tactile fremitus.. ABSENT: rales, rhonchi, wheezes Results Laboratory Results: 03/16/18 03:37 03/16/18 03:37 03/16/18 03/16/18 03:37 03:37 WBC 8.6 RBC 4.06 Hgb 12.6 Hct 37.1 MCV 91 MCH 31.0 MCHC 33.9 RDW 13.8 Plt Count 308 Sodium 142.5 Potassium 3.4 L Chloride 108 H Carbon Dioxide 22 Anion Gap 13 BUN 13 Creatinine 1.02 Est GFR ( Amer) > 60 Est GFR (Non-Af Amer) 53 L Glucose 145 H Calcium 9.7 Impressions: Chest X-Ray 03/13/18 13:09 IMPRESSION: NO ACUTE RADIOGRAPHIC FINDING IN THE CHEST. Head CT 03/13/18 13:09 IMPRESSION: Acute or early subacute posterior circulation infarcts in the left cerebellar hemisphere, bilateral occipital lobes, right lateral thalamus and posterior limb internal capsule. EVIDENCE OF ACUTE STROKE: Yes Head CTA 03/13/18 13:41 IMPRESSION: No large vessel occlusion. Assessment & Plan - Diagnosis (1) Acute CVA (cerebrovascular accident) Is this a current diagnosis for this admission?: Yes (2) Hypertension Qualifiers: Hypertension type: essential hypertension Qualified Code(s): I10 - Essential (primary) hypertension Is this a current diagnosis for this admission?: Yes (3) Encephalopathy Is this a current diagnosis for this admission?: Yes (4) DM II (diabetes mellitus, type II), controlled Qualifiers: Diabetes mellitus care home insulin use: without care home use Diabetes mellitus complication status: with circulatory complication Diabetes mellitus complication detail: with other circulatory complications Qualified Code(s): E11.59 - Type 2 diabetes mellitus with other circulatory complications Is this a current diagnosis for this admission?: Yes (5) Hypothyroidism (acquired) Is this a current diagnosis for this admission?: Yes (6) Spinal stenosis Is this a current diagnosis for this admission?: Yes (7) Chronic pain Qualifiers: Chronic pain type: chronic pain syndrome Qualified Code(s): G89.4 - Chronic pain syndrome Is this a current diagnosis for this admission?: Yes
[2018-03-16] MEDS: ACETAMINOPHEN 325 MG TABLET PO PRN (15:24)
[2018-03-16] MEDS ORDERED: POTASSIUM CHLORIDE 10 MEQ CAPSULE.ER PO ONE (19:30)
[2018-03-17 05:39] LABS: ANION GAP 13 (5-19); BLOOD UREA NITROGEN 18 mg/dL (7-20); CARBON DIOXIDE 20 mmol/L (22-30); CHLORIDE 112 mmol/L (98-107); GLUCOSE 105 mg/dL (75-110); POTASSIUM 4.2 mmol/L (3.6-5.0); SODIUM 144.9 mmol/L (137-145)
[2018-03-17] MEDS: LANSOPRAZOLE 30 MG TAB.RAP.DR PO SCH ×2 (07:33→15:26)
[2018-03-17] MEDS: TRAMADOL HCL 50 MG TABLET PO PRN ×3 (07:37→19:50)
[2018-03-17] MEDS: ENOXAPARIN SODIUM INJ 30 MG/0.3 ML DISP.SYRIN SUBCUT SCH (09:17)
[2018-03-17] MEDS: VERAPAMIL HCL 240 MG TABLET.SA PO SCH (09:18)
[2018-03-17] MEDS: CLOPIDOGREL BISULFATE 75 MG TABLET PO SCH (09:18)
[2018-03-17] MEDS: EZETIMIBE 10 MG TABLET PO SCH (09:19)
[2018-03-17] MEDS: OXYCODONE-ACETAMINOPHEN 5-325 MG TABLET PO SCH ×2 (09:19→21:01)
[2018-03-17] MEDS: ASPIRIN 81 MG TABLET, ENT COATED PO SCH (09:19)
--- NOTE | 2018-03-17 12:30 | PDOC PROGRESS REPORT ---
Subjective Subjective:: The patient is eating breakfast. She states that she did not sleep well last night. Reason For Visit: ACUTE CVA Physical Exam Vital Signs: Temp Pulse Resp BP Pulse Ox 97.7 F 79 18 129/61 H 98 03/17/18 11:27 03/17/18 11:27 03/17/18 11:27 03/17/18 11:27 03/17/18 11:27 Intake & Output 03/16/18 03/17/18 03/18/18 06:59 06:59 06:59 Intake Total 1483 1483 677 Output Total 600 300 Balance 1483 883 377 Weight 65.1 kg 65.2 kg General appearance: PRESENT: no acute distress, thin, well-developed Respiratory exam: PRESENT: other - No increased work of breathing. No tactile fremitus.. ABSENT: rales, rhonchi, wheezes Cardiovascular exam: PRESENT: RRR, other - No lateral PMI. No thrills.. ABSENT : diastolic murmur, rubs, systolic murmur Pulses: PRESENT: normal dorsalis pedis pul GI/Abdominal exam: PRESENT: normal bowel sounds, soft. ABSENT: distended, guarding, mass, organolmegaly, rebound, tenderness Rectal exam: PRESENT: deferred Extremities exam: PRESENT: full ROM. ABSENT: calf tenderness, clubbing, pedal edema Neurological exam: PRESENT: alert, awake, oriented to person, oriented to place , oriented to time, oriented to situation Psychiatric exam: PRESENT: appropriate affect, normal mood. ABSENT: homicidal ideation, suicidal ideation Skin exam: PRESENT: dry, intact, warm. ABSENT: cyanosis, rash Results Laboratory Results: 03/16/18 03:37 03/17/18 04:36 03/17/18 04:36 Sodium 144.9 Potassium 4.2 Chloride 112 H Carbon Dioxide 20 L Anion Gap 13 BUN 18 Creatinine 1.00 Est GFR ( Amer) > 60 Est GFR (Non-Af Amer) 54 L Glucose 105 Calcium 10.0 Impressions: Chest X-Ray 03/13/18 13:09 IMPRESSION: NO ACUTE RADIOGRAPHIC FINDING IN THE CHEST. Head CT 03/13/18 13:09 IMPRESSION: Acute or early subacute posterior circulation infarcts in the left cerebellar hemisphere, bilateral occipital lobes, right lateral thalamus and posterior limb internal capsule. EVIDENCE OF ACUTE STROKE: Yes Head CTA 03/13/18 13:41 IMPRESSION: No large vessel occlusion. Assessment & Plan - Diagnosis (1) Acute CVA (cerebrovascular accident) Is this a current diagnosis for this admission?: Yes Plan: Stroke work-up in place. PT has evaluated the patient and has determined that she will require SNF placement. Echocardiogram does not reveal cardiac source of embolus. MRI is pending. CTA head and neck did not demonstrate any hemodynamically significant stenosis or unstable plaque. Awaiting SNF placement. (2) Hypertension Qualifiers: Hypertension type: essential hypertension Qualified Code(s): I10 - Essential (primary) hypertension Is this a current diagnosis for this admission?: Yes Plan: Continue home antihypertensives. (3) Encephalopathy Is this a current diagnosis for this admission?: Yes Plan: Resolved. 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 (5) Hypothyroidism (acquired) Is this a current diagnosis for this admission?: Yes Plan: Continue levothyroxine (6) Spinal stenosis Is this a current diagnosis for this admission?: Yes Plan: Chronic. Continue pain medications as at home. (7) Chronic pain Qualifiers: Chronic pain type: chronic pain syndrome Qualified Code(s): G89.4 - Chronic pain syndrome Is this a current diagnosis for this admission?: Yes Plan: Continue pain medications as at home. - Time Time Spent with patient: 25-34 minutes Medications reviewed and adjusted accordingly: Yes Anticipated discharge: SNF
[2018-03-17] MEDS: ACETAMINOPHEN 325 MG TABLET PO PRN ×2 (15:28→22:48)
[2018-03-17] MEDS: INSULIN REG, HUMAN 100 UNIT/ML 3 ML VIAL (PYX) SUBCUT PRN (17:34)
[2018-03-18] MEDS: TRAMADOL HCL 50 MG TABLET PO PRN ×2 (06:27→16:06)
[2018-03-18] MEDS: LANSOPRAZOLE 30 MG TAB.RAP.DR PO SCH ×2 (08:09→16:05)
[2018-03-18] MEDS: CLOPIDOGREL BISULFATE 75 MG TABLET PO SCH (09:27)
[2018-03-18] MEDS: OXYCODONE-ACETAMINOPHEN 5-325 MG TABLET PO SCH (09:27)
[2018-03-18] MEDS: VERAPAMIL HCL 240 MG TABLET.SA PO SCH (09:28)
[2018-03-18] MEDS: ASPIRIN 81 MG TABLET, ENT COATED PO SCH (09:29)
[2018-03-18] MEDS: EZETIMIBE 10 MG TABLET PO SCH (09:29)
[2018-03-18] MEDS: ENOXAPARIN SODIUM INJ 30 MG/0.3 ML DISP.SYRIN SUBCUT SCH (09:29)
[2018-03-18] MEDS ORDERED: DOCUSATE SODIUM 100 MG CAPSULE PO ONE (15:00)
[2018-03-18] MEDS ORDERED: BISACODYL 10 MG SUPP.RECT PR ONE (15:00)
[2018-03-18 17:11] VITALS: BP 118/61
== END 2018-03-18 19:35 | DRG 66 ==
LOC: ER 13:08 → INTOOBSV 17:23 → EH 17:23 → 3N 20:10 → OBSVTOIN 03-15 10:52 → 3N 03-15 14:57
PROVIDERS: ADMIT Internal Medicine; ATTEND Internal Medicine
DX: I63.9 Cerebral infarction, unspecified (principal); E03.9 Hypothyroidism, unspecified; K21.9 Gastro-esophageal reflux disease without esophagitis; M48.00 Spinal stenosis, site unspecified; I10 Essential (primary) hypertension; E11.59 Type 2 diabetes mellitus with other circulatory complications; G89.4 Chronic pain syndrome; R47.81 Slurred speech; Z88.0 Allergy status to penicillin; Z90.710 Acquired absence of both cervix and uterus
CPT/HCPCS: 36415; 70450; 70496; 71045; 80048; 80053; 81001; 82550; 82553; 82962; 83036; 84484; 85025; 85027; 85610; 85730; 93005; 93010; 93306; 94762; 99285; G0378; G8978-GP; G8979-GP; G8987-GO; G8988-GO; J1650; J1815; J3490

== ENCOUNTER 2018-04-02 13:08 | Emergency (ER) | payer MEDICARE, BC ==
[2018-04-02] MEDS ORDERED: NORMAL SALINE 1000 ML 1,000 ML IV ONE (13:20)
--- NOTE | 2018-04-02 13:23 | ER Document Report ---
ED General - General Stated Complaint: NECK NUMBNESS Time Seen by Provider: 04/02/18 13:16 TRAVEL OUTSIDE OF THE [place] IN LAST 30 DAYS: No - HPI Patient complains to provider of: neck pain Notes: Patient presents with right-sided neck pain 8/10 crampy in nature without radiation nothing makes it better or worse. Patient feels very firm muscle her right sternocleidomastoid is contracted. Patient still able to move the right side bend to the right and left. But causes her pain. With hypertonic muscle. Patient has history of hypokalemia. - Related Data Allergies/Adverse Reactions: Penicillins Allergy (Verified 03/13/18 14:42) Titphdn-Nka-Wsl Reductase Inhibitor Allergy (Verified 03/13/18 21:38) Past Medical History - Social History Smoking Status: Unknown if Ever Smoked Family History: Reviewed & Not Pertinent - Past Medical History Cardiac Medical History: Reports: Hx Hypertension Endocrine Medical History: Reports: Hx Diabetes Mellitus Type 2 Renal/ Medical History: Denies: Hx Peritoneal Dialysis Psychiatric Medical History: Reports: Hx Depression Past Surgical History: Reports: Hx Hysterectomy, Hx Orthopedic Surgery - Bilat carpal tunnel release, Hx Vascular Surgery - Stents Review of Systems - Review of Systems Notes: REVIEW OF SYSTEMS: CONSTITUTIONAL: -fevers, -chills EENT: -eye pain, -difficulty swallowing, -nasal congestion CARDIOVASCULAR: -chest pain, -syncope. RESPIRATORY: -cough, -SOB GASTROINTESTINAL: -abdominal pain, -nausea, -vomiting, -diarrhea GENITOURINARY: -dysuria, -hematuria MUSCULOSKELETAL: -back pain, + neck pain SKIN: -rash or skin lesions. HEMATOLOGIC: -easy bruising or bleeding. LYMPHATIC: -swollen, enlarged glands. NEUROLOGICAL: -altered mental status or loss of consciousness, -headache, - neurologic symptoms PSYCHIATRIC: -anxiety, -depression. ALL OTHER SYSTEMS REVIEWED AND NEGATIVE. Physical Exam - Vital signs Vitals: Resp Pulse Ox 12 94 04/02/18 13:23 04/02/18 13:23 - Notes Notes: PHYSICAL EXAMINATION: GENERAL: Well-appearing, well-nourished and in no acute distress. HEAD: Atraumatic, normocephalic. EYES: Pupils equal round and reactive to light, extraocular movements intact, sclera anicteric, conjunctiva are normal. ENT: nares patent, oropharynx clear without exudates. Moist mucous membranes. NECK: hypertonic right sternoclydomastoid muscle LUNGS: Breath sounds clear to auscultation bilaterally and equal. No wheezes rales or rhonchi. HEART: Regular rate and rhythm without murmurs ABDOMEN: Soft, nontender, normoactive bowel sounds. No guarding, no rebound. No masses appreciated. EXTREMITIES: Normal range of motion, no pitting or edema. No cyanosis. NEUROLOGICAL: Cranial nerves grossly intact. Normal speech, normal gait. Normal sensory and motor exams. PSYCH: Normal mood, normal affect. SKIN: Warm, Dry, normal turgor, no rashes or lesions noted. Course - Re-evaluation Re-evalutation: 04/02/18 13:22 Well-appearing 78-year-old female presents with concerns of hypokalemia and muscle spasm in her right neck. Since of lab workup unremarkable. DC home with muscle relaxants. 04/02/18 15:35 - Vital Signs Vital signs: Temp Pulse Resp BP Pulse Ox 98.8 F 21 H 158/68 H 95 04/02/18 13:27 04/02/18 13:27 04/02/18 13:27 04/02/18 13:27 - Laboratory Result Diagrams: 04/02/18 13:37 04/02/18 13:37 Laboratory results interpreted by me: 04/02/18 04/02/18 13:37 13:37 WBC 11.2 H RDW 14.2 H Carbon Dioxide 32 H Est GFR (Non-Af Amer) 51 L Discharge - Discharge Clinical Impression: Muscle cramp Condition: Stable Disposition: HOME, SELF-CARE Prescriptions: Methocarbamol [Robaxin 500 mg Tablet] 500 mg PO Q8H #12 tablet Referrals: JENNIFER HERNÁNDEZ DO [NO LOCAL MD] - Follow up as needed
[2018-04-02 13:54] LABS: ABSOLUTE BASOPHILS # (AUTO) 0.1 10^3/uL (0.0-0.2); ABSOLUTE EOSINOPHILS # (AUTO) 0.1 10^3/uL (0.0-0.6); ABSOLUTE LYMPHOCYTES (AUTO) 2.5 10^3/uL (0.5-4.7); ABSOLUTE MONOCYTES (AUTO) 0.8 10^3/uL (0.1-1.4); ABSOLUTE NEUT (AUTO) 7.6 10^3/uL (1.7-8.2); BASOPHILS % (AUTO) 1.3 % (0-2); EOSINOPHILS % (AUTO) 1.3 % (0-6); HEMATOCRIT 41.1 % (36.0-47.0); HEMOGLOBIN 13.5 g/dL (12.0-15.5); LYMPHOCYTES % (AUTO) 22.5 % (13-45); MEAN CORPUSCULAR HEMOGLOBIN 30.2 pg (27.0-33.4); MEAN CORPUSCULAR HGB CONC 32.8 g/dL (32.0-36.0); MEAN CORPUSCULAR VOLUME 92 fl (80-97); MONOCYTES % (AUTO) 6.8 % (3-13); PLATELET COUNT 339 10^3/uL (150-450); RED BLOOD COUNT 4.47 10^6/uL (3.72-5.28); RED CELL DISTRIBUTION WIDTH 14.2 % (11.5-14.0); SEGMENTED NEUTROPHILS % (AUTO) 68.1 % (42-78); TOTAL CELLS COUNTED % (AUTO) 100 %; WHITE BLOOD COUNT 11.2 10^3/uL (4.0-10.5)
[2018-04-02 14:13] LABS: ANION GAP 14 (5-19); BLOOD UREA NITROGEN 16 mg/dL (7-20); CALCIUM 9.7 mg/dL (8.4-10.2); CARBON DIOXIDE 32 mmol/L (22-30); CHLORIDE 99 mmol/L (98-107); GLUCOSE 86 mg/dL (75-110); POTASSIUM 3.7 mmol/L (3.6-5.0); SODIUM 144.6 mmol/L (137-145)
[2018-04-02 15:22] LABS: APPEARANCE,URINE CLEAR; BILIRUBIN,URINE NEGATIVE (NEGATIVE); COLOR,URINE STRAW; GLUCOSE, URINE NEGATIVE (NEGATIVE); KETONES,URINE NEGATIVE (NEGATIVE); LEUKOCYTE ESTERASE,URINE NEGATIVE (NEGATIVE); NITRITE,URINE NEGATIVE (NEGATIVE); PROTEIN,URINE NEGATIVE (NEGATIVE); URINE SPECIFIC GRAVITY 1.008; UROBILINOGEN,URINE NEGATIVE mg/dL (<2.0)
[2018-04-02] MEDS ORDERED: METHOCARBAMOL 500 MG TABLET PO ONE (16:15)
[2018-04-02 17:15] VITALS: BP 147/60
--- NOTE | 2018-04-02 17:51 | EKG REPORT ---
SEVERITY:- NORMAL ECG - SINUS RHYTHM : Confirmed by: Darlin Sher 02-Apr-2018 17:51:06
== END 2018-04-02 17:15 | disposition home or self-care (01) ==
LOC: ER 13:08
DX: R25.2 Cramp and spasm (principal); M54.2 Cervicalgia; I10 Essential (primary) hypertension; E11.9 Type 2 diabetes mellitus without complications; Z88.0 Allergy status to penicillin; Z88.8 Allergy status to other drugs, medicaments and biological substances; Z86.39 Personal history of other endocrine, nutritional and metabolic disease
CPT/HCPCS: 93005; 99284; 36415; 83735; 85025; 80048; 81001; 93010; A9270

== ENCOUNTER 2018-06-25 11:07 | Observation (INO) | payer MEDICARE, BC ==
[2018-06-25 12:43] LABS: ABSOLUTE BASOPHILS # (AUTO) 0.1 10^3/uL (0.0-0.2); ABSOLUTE EOSINOPHILS # (AUTO) 0.3 10^3/uL (0.0-0.6); ABSOLUTE MONOCYTES (AUTO) 0.5 10^3/uL (0.1-1.4); ABSOLUTE NEUT (AUTO) 3.5 10^3/uL (1.7-8.2); BASOPHILS % (AUTO) 1.1 % (0-2); HEMATOCRIT 39.1 % (36.0-47.0); HEMOGLOBIN 12.9 g/dL (12.0-15.5); LYMPHOCYTES % (AUTO) 30.9 % (13-45); MEAN CORPUSCULAR HEMOGLOBIN 30.2 pg (27.0-33.4); MEAN CORPUSCULAR HGB CONC 32.9 g/dL (32.0-36.0); MEAN CORPUSCULAR VOLUME 92 fl (80-97); MONOCYTES % (AUTO) 8.5 % (3-13); PLATELET COUNT 320 10^3/uL (150-450); RED BLOOD COUNT 4.26 10^6/uL (3.72-5.28); RED CELL DISTRIBUTION WIDTH 14.2 % (11.5-14.0); SEGMENTED NEUTROPHILS % (AUTO) 55.5 % (42-78); TOTAL CELLS COUNTED % (AUTO) 100 %; WHITE BLOOD COUNT 6.3 10^3/uL (4.0-10.5)
--- NOTE | 2018-06-25 12:57 | RADIOLOGY REPORT (SQ) ---
EXAM DESCRIPTION: CT HEAD WITHOUT COMPLETED DATE/TIME: 06/25/2018 12:47 pm REASON FOR STUDY: ams COMPARISON: 03/13/2018 TECHNIQUE: Axial images acquired through the brain without intravenous contrast. Images reviewed wi th bone, brain and subdural windows. Additional sagittal and coronal reconstructions were generated. Images stored on PACS. All CT scanners at this facility use dose modulation, iterative reconstruction, and/or weight based d osing when appropriate to reduce radiation dose to as low as reasonably achievable (ALARA). [facility]: Dose Right [facility]: CareDose [facility]: Dose Right [facility]: Teradose 4D [facility]: [employer] RADIATION DOSE: CT Rad equipment meets quality standard of care and radiation dose reduction techniq ues were employed. CTDIvol: 53.2 mGy. DLP: 964 mGy-cm.mGy. LIMITATIONS: None. FINDINGS: VENTRICLES: Prominent. CEREBRUM: No masses. No hemorrhage. No midline shift. 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 A reas of low density in the white matter most likely due to chronic micro-vascular ischemic change. N o evidence for acute infarction. CEREBELLUM: No masses. No hemorrhage. No alteration of density. No evidence for acute infarction. EXTRAAXIAL SPACES: Age-related involutional change. No fluid collections. No masses. ORBITS AND GLOBE: No intra- or extraconal masses. Normal contour of globe without masses. CALVARIUM: No fracture. PARANASAL SINUSES: No fluid or mucosal thickening. SOFT TISSUES: No mass or hematoma. OTHER: No other significant finding. IMPRESSION: CHRONIC CHANGES OF ATROPHY AND MICROVASCULAR ISCHEMIA. NO ACUTE PROCESS. EVIDENCE OF ACUTE STROKE: NO. TECHNICAL DOCUMENTATION: JOB ID: [id number] Quality ID # [id number]: Final reports with documentation of one or more dose reduction techniques (e.g., Au tomated exposure control, adjustment of the mA and/or kV according to patient size, use of iterative reconstruction technique) 2010 [employer]- All Rights Reserved Reading location - IP/workstation name: [email or web address]
[2018-06-25 13:04] LABS: ALANINE AMINOTRANSFERASE 20 U/L (9-52); ALBUMIN 4.5 g/dL (3.5-5.0); ALKALINE PHOSPHATASE 71 U/L (38-126); ANION GAP 11 (5-19); ASPARTATE AMINO TRANSFERASE 24 U/L (14-36); BILIRUBIN,DIRECT 0.3 mg/dL (0.0-0.4); BILIRUBIN,TOTAL 0.5 mg/dL (0.2-1.3); BLOOD UREA NITROGEN 12 mg/dL (7-20); CARBON DIOXIDE 29 mmol/L (22-30); CHLORIDE 102 mmol/L (98-107); GLUCOSE 102 mg/dL (75-110); POTASSIUM 3.9 mmol/L (3.6-5.0); SODIUM 142.4 mmol/L (137-145); TOTAL PROTEIN 8.1 g/dL (6.3-8.2)
--- NOTE | 2018-06-25 13:06 | ER Document Report ---
ED General - General Chief Complaint: General Weakness Stated Complaint: CONFUSION Time Seen by Provider: 06/25/18 11:36 Mode of Arrival: Ambulatory Information source: Patient Notes: Patient brought to the emergency department by EMS from [facility] for evaluation of "not feeling right." Patient states that she had an "out of body " experience this morning. Patient states that she was "looking at herself from the outside." Patient states that she was sitting down when this occurred. Then felt generally weak. It lasted about an hour prior to EMS being notified. Patient states that her symptoms resolved in route to the emergency department. Patient states that she has had similar experiences with prior TIAs. She states that she does have a history of CVA. Her last CVA was in March. She has residual right lower extremity weakness. Patient denies any new numbness, tingling, weakness, vision changes, speech changes. She denies any chest pain, shortness of breath, nausea, vomiting, abdominal pain. Patient states that she is on anticoagulants. She denies recent trauma or injury. Patient says that her symptoms today were similar to her previous CVAs. TRAVEL OUTSIDE OF THE [place] IN LAST 30 DAYS: No - HPI Onset: This morning Onset/Duration: Sudden Quality of pain: No pain Severity: None Pain Level: Denies Associated symptoms: None Exacerbated by: Denies Relieved by: Denies Similar symptoms previously: Yes Recently seen / treated by doctor: No - Related Data Allergies/Adverse Reactions: Penicillins Allergy (Verified 03/13/18 14:42) Bjlajrz-Qpq-Tje Reductase Inhibitor Allergy (Verified 03/13/18 21:38) Past Medical History - General Information source: Patient - Social History Smoking Status: Never Smoker Frequency of alcohol use: None Drug Abuse: None Family History: Reviewed & Not Pertinent Patient has suicidal ideation: No Patient has homicidal ideation: No - Past Medical History Cardiac Medical History: Reports: Hx Hypertension Endocrine Medical History: Reports: Hx Diabetes Mellitus Type 2 Renal/ Medical History: Denies: Hx Peritoneal Dialysis Psychiatric Medical History: Reports: Hx Depression Past Surgical History: Reports: Hx Hysterectomy, Hx Orthopedic Surgery - Bilat carpal tunnel release, Hx Vascular Surgery - Stents Review of Systems - Review of Systems Constitutional: No symptoms reported EENT: No symptoms reported Cardiovascular: No symptoms reported Respiratory: No symptoms reported Gastrointestinal: No symptoms reported Genitourinary: No symptoms reported Female Genitourinary: No symptoms reported Musculoskeletal: No symptoms reported Skin: No symptoms reported Hematologic/Lymphatic: No symptoms reported Neurological/Psychological: Confusion Physical Exam - Vital signs Vitals: Temp Pulse Resp BP Pulse Ox 97.7 F 90 18 159/61 H 96 06/25/18 11:13 06/25/18 11:13 06/25/18 11:13 06/25/18 11:13 06/25/18 11:13 - General Notes: PHYSICAL EXAMINATION: GENERAL: Well-appearing, well-nourished and in no acute distress. HEAD: Atraumatic, normocephalic. EYES: Pupils equal round and reactive to light, extraocular movements intact, conjunctiva are normal. ENT: Nares patent, oropharynx clear without exudates. Moist mucous membranes. NECK: Normal range of motion, supple without lymphadenopathy LUNGS: Breath sounds clear to auscultation bilaterally and equal. No wheezes rales or rhonchi. HEART: Regular rate and rhythm without murmurs ABDOMEN: Soft, nontender, nondistended abdomen. No guarding, no rebound. No masses appreciated. Female : deferred Musculoskeletal: Normal range of motion, no pitting or edema. No cyanosis. NEUROLOGICAL: Cranial nerves grossly intact. Normal speech. Normal sensory. RLE weakness. PSYCH: Normal mood, normal affect. SKIN: Warm, Dry, normal turgor, no rashes or lesions noted. Course - Re-evaluation Re-evalutation: 06/25/18 14:32 EKG: Ventricular rate 74, IN interval 192, castration 84, QTc 453, normal sinus rhythm, EKG similar to that done on 04/02/18 06/25/18 15:15 Labs and imaging obtained. No acute process was identified. I discussed the findings with the patient and her family. They would like the patient admitted for further workup. They state that her symptoms are similar to her previous CVAs. I contacted the hospitalist, Dr. Pak, for admission. He is agreeable with admitting the patient to observation. - Vital Signs Vital signs: Temp Pulse Resp BP Pulse Ox 97.7 F 90 18 159/61 H 96 06/25/18 11:13 06/25/18 11:13 06/25/18 11:13 06/25/18 11:13 06/25/18 11:13 - Laboratory Result Diagrams: 06/25/18 12:25 06/25/18 12:25 Laboratory results interpreted by me: 06/25/18 06/25/18 12:25 12:25 RDW 14.2 H Est GFR ( Amer) 51 L Est GFR (Non-Af Amer) 42 L Discharge - Discharge Clinical Impression: TIA (transient ischemic attack) Condition: Good Disposition: ADMITTED OBSERVATION Admitting Provider: Hospitalist Unit Admitted: [facility]
[2018-06-25 13:20] LABS: FREE T4 (FREE THYROXINE) 1.32 ng/dL (0.78-2.19)
--- NOTE | 2018-06-25 13:29 | RADIOLOGY REPORT (SQ) ---
EXAM DESCRIPTION: CHEST SINGLE VIEW COMPLETED DATE/TIME: 06/25/2018 1:16 pm REASON FOR STUDY: ams COMPARISON: 03/13/2018 EXAM PARAMETERS: NUMBER OF VIEWS: One view. TECHNIQUE: Single frontal radiographic view of the chest acquired. RADIATION DOSE: NA LIMITATIONS: None. FINDINGS: LUNGS AND PLEURA: No opacities, masses or pneumothorax. No pleural effusion. MEDIASTINUM AND HILAR STRUCTURES: No masses. Contour normal. HEART AND VASCULAR STRUCTURES: Heart normal in size. Normal vasculature. BONES: No acute findings. HARDWARE: None in the chest. OTHER: No other significant finding. IMPRESSION: NO ACUTE RADIOGRAPHIC FINDING IN THE CHEST. TECHNICAL DOCUMENTATION: JOB ID: [id number] [employer]- All Rights Reserved Reading location - IP/workstation name: [email or web address]
[2018-06-25 13:34] LABS: THYROID STIMULATING HORMONE 2.68 uIU/mL (0.47-4.68)
[2018-06-25 14:14] LABS: APPEARANCE,URINE CLEAR; BILIRUBIN,URINE NEGATIVE (NEGATIVE); COLOR,URINE COLORLESS; GLUCOSE, URINE NEGATIVE (NEGATIVE); KETONES,URINE NEGATIVE (NEGATIVE); LEUKOCYTE ESTERASE,URINE NEGATIVE (NEGATIVE); NITRITE,URINE NEGATIVE (NEGATIVE); PROTEIN,URINE NEGATIVE (NEGATIVE); URINE SPECIFIC GRAVITY 1.004; UROBILINOGEN,URINE NEGATIVE mg/dL (<2.0)
[2018-06-25 14:32] LABS: URINE AMPHETAMINES SCREEN NEGATIVE; URINE BARBITURATES SCREEN NEGATIVE; URINE BENZODIAZEPINES SCREEN NEGATIVE; URINE COCAINE SCREEN NEGATIVE; URINE MARIJUANA (THC) SCREEN NEGATIVE; URINE METHADONE SCREEN NEGATIVE; URINE PHENCYCLIDINE SCREEN NEGATIVE
[2018-06-25] MEDS ORDERED: ZOLPIDEM TARTRATE 5 MG TABLET PO PRN (15:22)
[2018-06-25] MEDS ORDERED: MAGNESIUM HYDROXIDE SUSP 30 ML UDCUP PO PRN (15:22)
[2018-06-25] MEDS ORDERED: ONDANSETRON 4 MG TAB.RAPDIS PO PRN (15:22)
[2018-06-25] MEDS ORDERED: MAG HYDROX/AL HYDROX/SIMETH SUSP 30 ML UDCUP PO PRN (15:22)
[2018-06-25] MEDS ORDERED: TRAMADOL HCL 50 MG TABLET PO PRN (15:31)
[2018-06-25 17:20] LABS: CREATINE KINASE MB 1.15 ng/mL (<4.55)
[2018-06-25 17:23] LABS: TROPONIN I < 0.012 ng/mL
[2018-06-25] MEDS: OXYCODONE-ACETAMINOPHEN 5-325 MG TABLET PO SCH (18:17)
[2018-06-25] MEDS: DOCUSATE SODIUM 100 MG CAPSULE PO SCH (18:19)
[2018-06-25] MEDS: OXYCODONE HCL IR 5 MG TABLET PO SCH (18:21)
[2018-06-25] MEDS: ENOXAPARIN SODIUM INJ 40 MG/0.4 ML DISP.SYRIN SUBCUT SCH (18:22)
[2018-06-25] MEDS: LANSOPRAZOLE 30 MG TAB.RAP.DR PO SCH (18:23)
--- NOTE | 2018-06-25 19:18 | PDOC H&P ---
History of Present Illness Admission Date/PCP: 06/25/18 16:09 RICKY LEMA MD History of Present Illness: JESSI JENKINS is a 78 year old female who has a history of stroke earlier this year who came in today because while she was at the assisted and aide was helping her get her clothes on, she experienced what she can only describe as a "out of body experience." She said that she did not have a headache, and she denied visual disturbances or trouble chewing or swallowing. She said she did not have any trouble speaking and she did not have any trouble using her extremities. She cannot adequately say whether or not she has more trouble walking than previously. She was able to call a family friend and tell her about the episode while the patient said it was going on, an episode which she said lasted 30-45 minutes. When the family friend got over to the assisted the friend said that the patient seemed weaker than usual. Because of that they sent her over here for evaluation. Past Medical History Cardiac Medical History: Reports: Hypertension Endocrine Medical History: Reports: Diabetes Mellitus Type 2 Psychiatric Medical History: Reports: Depression Past Surgical History Past Surgical History: Reports: Hysterectomy, Orthopedic Surgery - Bilat carpal tunnel release, Vascular Surgery - Stents Social History Smoking Status: Never Smoker Frequency of Alcohol Use: None Hx Recreational Drug Use: No Drugs: None Hx Prescription Drug Abuse: No Family History Family History: Reviewed & Not Pertinent Parental Family History Reviewed: No - Noncontributory Children Family History Reviewed: No - Noncontributory Sibling(s) Family History Reviewed.: No - Noncontributory Medication/Allergy Home Medications: Clopidogrel Bisulfate [Plavix 75 mg Tablet] 75 mg PO DAILY 03/13/18 Furosemide [Lasix 20 mg Tablet] 20 mg PO DAILY 03/13/18 Oxycodone HCl/Acetaminophen [Endocet 10-325 mg Tablet] 1 tab PO Q8HP PRN Pantoprazole Sodium [Protonix] 40 mg PO DAILY 03/13/18 Verapamil HCl [Verapamil ER] 240 mg PO DAILY 03/13/18 Ezetimibe [Zetia 10 mg Tablet] 10 mg PO DAILY #30 tablet 03/16/18 Cyclobenzaprine HCl [Flexeril 5 mg Tablet] 5 mg PO DAILYP PRN 06/25/18 Desvenlafaxine Succinate [Desvenlafaxine Succinate ER] 25 mg PO DAILY 06/25/18 Potassium Chloride [Klor-Con 10 Meq Capsule ER] 20 meq PO Q12 06/25/18 Allergies/Adverse Reactions: Penicillins Allergy (Verified 03/13/18 14:42) Sncaftq-Wjh-Xpz Reductase Inhibitor Allergy (Verified 03/13/18 21:38) Review of Systems All systems: reviewed and no additional remarkable complaints except as stated - A 10 point review of systems was conducted with the patient was negative except as noted in the HPI Physical Exam Vital Signs: Temp Pulse Resp BP Pulse Ox 98.2 F 90 17 142/47 H 95 06/25/18 18:56 06/25/18 11:13 06/25/18 18:56 06/25/18 18:56 06/25/18 18:56 Intake & Output 06/24/18 06/25/18 06/26/18 06:59 06:59 06:59 Weight 72.5 kg General appearance: PRESENT: no acute distress, cooperative, disheveled Head exam: PRESENT: atraumatic, normocephalic Eye exam: PRESENT: EOMI, PERRLA. ABSENT: nystagmus, scleral icterus Ear exam: PRESENT: normal external ear exam Mouth exam: PRESENT: moist, neck supple, tongue midline Throat exam: ABSENT: post pharyngeal erythema Neck exam: PRESENT: full ROM. ABSENT: carotid bruit, JVD, lymphadenopathy, meningismus, tenderness Respiratory exam: PRESENT: clear to auscultation luis felipe, unlabored. ABSENT: rales , rhonchi, tachypnea, wheezes Cardiovascular exam: PRESENT: RRR, +S1, +S2. ABSENT: diastolic murmur, systolic murmur Pulses: PRESENT: normal radial pulses, normal dorsalis pedis pul Vascular exam: PRESENT: normal capillary refill GI/Abdominal exam: PRESENT: normal bowel sounds, soft. ABSENT: guarding, rebound, tenderness Extremities exam: PRESENT: full ROM. ABSENT: clubbing, pedal edema Musculoskeletal exam: PRESENT: full ROM, normal inspection. ABSENT: deformity Neurological exam: PRESENT: alert, awake, oriented to person, oriented to place , oriented to situation, CN II-XII grossly intact. ABSENT: motor sensory deficit - No discernible deficits while she was in the bed, but I did not attempt to walk her because I did not have assistance Psychiatric exam: PRESENT: anxious Skin exam: PRESENT: dry, warm Results Laboratory Results: 06/25/18 06/25/18 16:40 16:40 Creatine Kinase 58 CK-MB (CK-2) 1.15 Troponin I < 0.012 Impressions: Chest X-Ray 06/25/18 11:46 IMPRESSION: NO ACUTE RADIOGRAPHIC FINDING IN THE CHEST. Head CT 06/25/18 11:46 IMPRESSION: CHRONIC CHANGES OF ATROPHY AND MICROVASCULAR ISCHEMIA. NO ACUTE PROCESS. EVIDENCE OF ACUTE STROKE: NO. Assessment & Plan - Diagnosis (1) Weakness Is this a current diagnosis for this admission?: Yes Plan: I do not know if I can adequately characterize what she described to me as a TIA. I am not sure exactly what to call what she described to me. Because of her history of stroke, I am going to try to obtain some additional imaging of the brain. I think she had angiography earlier this summer, but I will double check to see if it needs to be ordered. I will also have her evaluated by speech therapy, physical therapy, and occupational therapy. She apparently cannot take statins. We will continue her Zetia. We will keep her blood pressure under control. 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
[2018-06-25] MEDS ORDERED: (PENDING PHARMACY ID) (Oxycodone Hcl/Acetaminophen [Endocet 10-325 Mg Tablet] 1 TAB) PO SCH (22:00)
[2018-06-25] MEDS ORDERED: FAMOTIDINE 20 MG TABLET PO SCH (22:00)
[2018-06-25] MEDS: ACETAMINOPHEN 325 MG TABLET PO PRN (23:12)
--- NOTE | 2018-06-25 23:18 | EKG REPORT ---
SEVERITY:- NORMAL ECG - SINUS RHYTHM : Confirmed by: Darlin Sher 25-Jun-2018 23:17:09
[2018-06-26] MEDS: ACETAMINOPHEN 325 MG TABLET PO PRN (03:45)
[2018-06-26] MEDS: OXYCODONE HCL IR 5 MG TABLET PO SCH (05:11)
[2018-06-26] MEDS: LANSOPRAZOLE 30 MG TAB.RAP.DR PO SCH ×2 (05:12→18:03)
[2018-06-26] MEDS: OXYCODONE-ACETAMINOPHEN 5-325 MG TABLET PO SCH (05:12)
--- NOTE | 2018-06-26 09:35 | Physician Advisory Note ---
Physician Advisor ProgressNote .: Pursuant to the plan for Nessa Mcclure, I have reviewed the medical record for this patient. Physician Advisor Statement: Please consider documenting, if you agree: 1. Most likely dx causing pt's sx: "TIA"? "Acute cerebrovascular insufficiency"? "cerebrovascular atherosclerotic dz"? "possible side effect of "? "orthostatic hypotension"? ... Status: agree w/obs status being most appropriate initially for sx of unclear cause, low severity of illness/intensity of service. - If pt is not felt to be safe for d/c later today due to new or recurrent concerning clinical issues, please document this explicitly & there may be a possibility she may become appropriate for Inpt status. Thanks! CK
[2018-06-26] MEDS: ENOXAPARIN SODIUM INJ 40 MG/0.4 ML DISP.SYRIN SUBCUT SCH (10:27)
[2018-06-26] MEDS: DOCUSATE SODIUM 100 MG CAPSULE PO SCH ×2 (10:27→18:03)
[2018-06-26] MEDS: CLOPIDOGREL BISULFATE 75 MG TABLET PO SCH (10:27)
[2018-06-26] MEDS: FUROSEMIDE 20 MG TABLET PO SCH (10:27)
--- NOTE | 2018-06-26 12:33 | PDOC PROGRESS REPORT ---
Subjective Progress Note for:: 06/26/18 Subjective:: JESSI JENKINS is a 78 year old female who has a history of stroke earlier this year who came in today because while she was at the group home and aide was helping her get her clothes on, she experienced what she can only describe as a "out of body experience." She said that she did not have a headache, and she denied visual disturbances or trouble chewing or swallowing. She said she did not have any trouble speaking and she did not have any trouble using her extremities. She cannot adequately say whether or not she has more trouble walking than previously. Patient today is back to her baseline. Complaining her pain medicine is not scheduled as she receives it at the assisted living. MRI ordered but on hold due to history of a right carotid stent awaiting medical records to see if MRI can proceed. Review of medical records shows a March CTA brain that showed no great vessel obstruction but carotids were not mentioned are adequately imaged at that time. Patient's admitting complaint is rather bizarre and nonspecific. Reason For Visit: WEAKNESS Physical Exam Vital Signs: Temp Pulse Resp BP Pulse Ox 98.9 F 96 21 H 140/57 H 98 06/26/18 11:54 06/26/18 11:54 06/26/18 11:54 06/26/18 11:54 06/26/18 11:54 Intake & Output 06/25/18 06/26/18 06/27/18 06:59 06:59 06:59 Intake Total 813 177 Balance 813 177 Weight 72.5 kg General appearance: PRESENT: no acute distress Head exam: PRESENT: atraumatic, normocephalic Eye exam: PRESENT: conjunctiva pink, EOMI, PERRLA. ABSENT: scleral icterus Neck exam: PRESENT: carotid bruit - Right faint Respiratory exam: PRESENT: clear to auscultation luis felipe. ABSENT: rales, rhonchi, wheezes Cardiovascular exam: PRESENT: RRR. ABSENT: diastolic murmur, rubs, systolic murmur GI/Abdominal exam: PRESENT: normal bowel sounds, soft. ABSENT: distended, guarding, mass, organolmegaly, rebound, tenderness Extremities exam: PRESENT: full ROM. ABSENT: calf tenderness, clubbing, pedal edema Neurological exam: PRESENT: alert, awake, oriented to person, oriented to place , oriented to time, oriented to situation, CN II-XII grossly intact. ABSENT: motor sensory deficit Results Laboratory Results: 06/25/18 06/25/18 16:40 16:40 Creatine Kinase 58 CK-MB (CK-2) 1.15 Troponin I < 0.012 Impressions: Chest X-Ray 06/25/18 11:46 IMPRESSION: NO ACUTE RADIOGRAPHIC FINDING IN THE CHEST. Head CT 06/25/18 11:46 IMPRESSION: CHRONIC CHANGES OF ATROPHY AND MICROVASCULAR ISCHEMIA. NO ACUTE PROCESS. EVIDENCE OF ACUTE STROKE: NO. Assessment & Plan - Diagnosis (1) TIA (transient ischemic attack) Is this a current diagnosis for this admission?: Yes Plan: Presenting complaint rather bizarre unclear if patient suffered TIA. She is on Plavix for small vessel disease explained there is no further therapy. Will obtain a carotid Doppler to assess for reocclusion of the stent. MRI pending receipt of information of right carotid stent. If MRI cannot be accomplished and Doppler shows no significant stenosis patient will be discharged on Plavix with follow-up to her neurologist (2) Chronic pain Qualifiers: Chronic pain type: chronic pain syndrome Qualified Code(s): G89.4 - Chronic pain syndrome Is this a current diagnosis for this admission?: Yes Plan: Patient on oxycodone every 8 hours will make access to medication every 6 but on a as needed basis. (3) DM II (diabetes mellitus, type II), controlled Qualifiers: Diabetes mellitus assisted insulin use: without assisted use Diabetes mellitus complication status: with circulatory complication Diabetes mellitus complication detail: with other circulatory complications Qualified Code(s): E11.59 - Type 2 diabetes mellitus with other circulatory complications Is this a current diagnosis for this admission?: Yes Plan: Hemoglobin A1c 5.2 in March. Continue sliding scale (4) Hypertension Qualifiers: Hypertension type: essential hypertension Qualified Code(s): I10 - Essential (primary) hypertension Is this a current diagnosis for this admission?: Yes Plan: Elevated blood pressure resume patient's verapamil continue to monitor. Pain medication has been adjusted as well. (5) Hypothyroidism (acquired) Is this a current diagnosis for this admission?: Yes Plan: TSH 2.68 no change in levothyroxine dose (6) Spinal stenosis Is this a current diagnosis for this admission?: Yes Plan: Cause for her chronic pain. We will adjust her oxycodone to every 6 as needed. Have stressed to the patient that while in hospital she will have to request if she is having pain rather than be given scheduled opioids. - Time Time Spent with patient: 25-34 minutes
[2018-06-26] MEDS: OXYCODONE HCL IR 5 MG TABLET PO PRN ×2 (12:37→18:38)
[2018-06-26] MEDS: OXYCODONE-ACETAMINOPHEN 5-325 MG TABLET PO PRN ×2 (12:38→18:37)
[2018-06-26] MEDS: VERAPAMIL HCL 240 MG TABLET.SA PO SCH (14:22)
--- NOTE | 2018-06-26 17:31 | RADIOLOGY REPORT (SQ) ---
EXAM DESCRIPTION: CAROTID DOPPLER COMPLETED DATE/TIME: 06/26/2018 3:54 pm REASON FOR STUDY: TIA history right carotid stent COMPARISON: None. TECHNIQUE: Grayscale ultrasound, Doppler velocity and spectra, and color Doppler images acquired of the extra-cranial carotid and vertebral arteries. Images stored on PACS. LIMITATIONS: None. FINDINGS: RIGHT CAROTID CCA Velocities: Within normal limits. ICA Velocities Peak systolic 1.56 m/s. End diastolic 0.39 m/s. Proximal ICA/CCA peak systolic ratio 1.7. Spectra normal. No significant plaque. LEFT CAROTID CCA Velocities: Within normal limits. ICA Velocities Peak systolic 0.92 m/s. End diastolic 0.27 m/s. Proximal ICA/CCA peak systolic ratio 1.2. Spectra normal. No significant plaque. VERTEBRAL ARTERIES: Antegrade flow. Normal waveforms. SUBCLAVIAN ARTERIES: No finding. OTHER: No other significant finding. IMPRESSION: NO HEMODYNAMICALLY SIGNIFICANT STENOSIS. PATIENT REPORTS A STENT IN THE RIGHT INTERNAL CAROTID ARTERY BUT THIS COULD NOT BE VISUALIZED WITH DOPPLER IMAGING. COMMENT: Quality ID #[id number]: Velocity criteria are extrapolated from the diameter data as defined by t he Society of Radiologists in Ultrasound Consensus Conference. Radiology 2003: 229; 340-346. TECHNICAL DOCUMENTATION: JOB ID: [id number] [employer]- All Rights Reserved Reading location - IP/workstation name: [email or web address]
[2018-06-27] MEDS: OXYCODONE-ACETAMINOPHEN 5-325 MG TABLET PO PRN ×3 (02:29→16:53)
[2018-06-27] MEDS: OXYCODONE HCL IR 5 MG TABLET PO PRN ×3 (02:30→16:55)
[2018-06-27] MEDS: LANSOPRAZOLE 30 MG TAB.RAP.DR PO SCH (05:41)
[2018-06-27] MEDS ORDERED: LANSOPRAZOLE 30 MG TAB.RAP.DR PO SCH (06:00)
[2018-06-27] MEDS: ENOXAPARIN SODIUM INJ 40 MG/0.4 ML DISP.SYRIN SUBCUT SCH (08:59)
[2018-06-27] MEDS: CLOPIDOGREL BISULFATE 75 MG TABLET PO SCH (09:00)
[2018-06-27] MEDS: VERAPAMIL HCL 240 MG TABLET.SA PO SCH (09:05)
[2018-06-27] MEDS: DOCUSATE SODIUM 100 MG CAPSULE PO SCH (09:06)
[2018-06-27] MEDS: FUROSEMIDE 20 MG TABLET PO SCH (09:06)
[2018-06-27] MEDS ORDERED: (PENDING PHARMACY ID) (Verapamil Hcl [Verapamil Er] 240 MG) PO SCH (10:00)
[2018-06-27] MEDS ORDERED: LORAZEPAM 1 MG TABLET PO PRN (10:09)
[2018-06-27] MEDS: ACETAMINOPHEN 325 MG TABLET PO PRN (13:47)
--- NOTE | 2018-06-27 14:13 | RADIOLOGY REPORT (SQ) ---
EXAM DESCRIPTION: MRI HEAD WITHOUT COMPLETED DATE/TIME: 06/27/2018 11:50 am REASON FOR STUDY: weakness, history of CVA COMPARISON: None. TECHNIQUE: Multiplanar imaging includes non-contrasted T1, T2, FLAIR, and diffusion with ADC map seq uences. Images stored on PACS. LIMITATIONS: None. FINDINGS: ANATOMY: No anomalies. Normal vascular flow voids. Pituitary fossa normal. CSF SPACES: Atrophy induced prominence of ventricles and CSF spaces. CEREBRUM: Old left parietal and occipital infarcts. High signal intensity lesions scattered througho ut the white matter on FLAIR imaging with distribution suggesting micro-vascular ischemic changes. N o evidence of hemorrhage, mass, or extraaxial fluid collection. POSTERIOR FOSSA: Old left cerebellar infarct. No hemorrhage. No edema, masses or mass effect. Feather Separator al auditory canals, cerebello-pontine angles, mastoids normal. DIFFUSION IMAGING: Negative for acute or sub-acute infarction. ORBITS: No masses. Globes normal. PARANASAL SINUSES: No fluid levels. Mucosa normal. OTHER: No other significant finding. IMPRESSION: Old infarcts. No acute findings. EVIDENCE OF ACUTE STROKE: NO. TECHNICAL DOCUMENTATION: JOB ID: [id number] [employer]- All Rights Reserved Reading location - IP/workstation name: SOFTWARE APPLICATION [email or web address]
--- NOTE | 2018-06-27 14:42 | PDOC TRANSFER SUMMARY ---
General - Admit/Disc Date/PCP Admission Date/Primary Care Provider: 06/25/18 16:09 RICKY LEMA MD Discharge Date: 06/27/18 - Discharge Diagnosis (1) TIA (transient ischemic attack) Is this a current diagnosis for this admission?: Yes Summary: Continue Plavix (2) Chronic pain Is this a current diagnosis for this admission?: Yes (3) DM II (diabetes mellitus, type II), controlled Is this a current diagnosis for this admission?: Yes (4) Hypertension Is this a current diagnosis for this admission?: Yes (5) Spinal stenosis Is this a current diagnosis for this admission?: Yes (6) Hypothyroidism (acquired) Is this a current diagnosis for this admission?: Yes Summary: TSH 2.68 - Additional Information Resuscitation Status: Full Code Discharge Diet: As Tolerated Discharge Activity: Activity As Tolerated Home Medications: Clopidogrel Bisulfate [Plavix 75 mg Tablet] 75 mg PO DAILY 03/13/18 Furosemide [Lasix 20 mg Tablet] 20 mg PO DAILY 03/13/18 Oxycodone HCl/Acetaminophen [Endocet 10-325 mg Tablet] 1 tab PO 00,08,16 PRN 06/21 Pantoprazole Sodium [Protonix] 40 mg PO DAILY 03/13/18 Verapamil HCl [Verapamil ER] 240 mg PO DAILY 03/13/18 Ezetimibe [Zetia 10 mg Tablet] 10 mg PO DAILY #30 tablet 03/16/18 Cyclobenzaprine HCl [Flexeril 5 mg Tablet] 5 mg PO DAILYP PRN 06/25/18 Desvenlafaxine Succinate [Desvenlafaxine Succinate ER] 25 mg PO DAILY 06/25/18 Potassium Chloride [Klor-Con 10 Meq Capsule ER] 20 meq PO Q12 06/25/18 Acetaminophen [Tylenol 325 mg Tablet] 650 mg PO Q4HP PRN tablet 06/27/18 History of Present Illness Admission Date/PCP: 06/25/18 16:09 RICKY LEMA MD Patient complains of: Having stroke History of Present Illness: JESSI JENKINS is a 78 year old female who has a history of stroke earlier this year who came in today because [facility] and [facility] was helping her get her clothes on, she experienced what she can only describe as a "out of body experience." She said that she did not have a headache, and she denied visual disturbances or trouble chewing or swallowing. She said she did not have any trouble speaking and she did not have any trouble using her extremities. She cannot adequately say whether or not she has more trouble walking than previously. She was able to call a family friend and tell her about the episode while the patient said it was going on, an episode which she said lasted 30-45 minutes. Hospital Course Hospital Course: Patient was admitted to telemetry bed. Her "out of body experience" resolved she had no further episodes while in the hospital she had no focal motor neuro deficits. A MRI was scheduled for completeness after CT failed to show any acute pathology. Patient stated she had a stent in her right carotid. Requests from the hospital where the supposed stent was placed were requested it appears patient underwent an endarterectomy and not a stent placement but she is adamant that a stent was placed. An ultrasound of the carotids was performed which did not identify any stent there was no significant stenosis. The MRI was completed which showed old strokes and no acute pathology. As there was no embolic source identified. Patient has significant cerebrovascular disease she was informed that she is on maximal therapy with the Plavix and aspirin and Plavix combination is not recommended. She was discharged back to her assisted living with no change in her medical regimen Physical Exam Vital Signs: Temp Pulse Resp BP Pulse Ox 98.4 F 80 16 97/36 L 96 06/27/18 10:53 06/27/18 14:00 06/27/18 10:53 06/27/18 10:53 06/27/18 10:53 Intake & Output 06/26/18 06/27/18 06/28/18 06:59 06:59 06:59 Intake Total 813 664 200 Output Total 500 250 Balance 813 164 -50 Weight 72.5 kg General appearance: PRESENT: no acute distress, well-developed, well-nourished Neck exam: PRESENT: carotid bruit. ABSENT: JVD, lymphadenopathy, thyromegaly Cardiovascular exam: PRESENT: RRR. ABSENT: diastolic murmur, rubs, systolic murmur Extremities exam: PRESENT: full ROM. ABSENT: calf tenderness, clubbing, pedal edema Neurological exam: PRESENT: alert, awake, oriented to person, oriented to place , oriented to time, oriented to situation, CN II-XII grossly intact, other - No focal deficit Results Laboratory Results: 06/25/18 06/25/18 16:40 16:40 Creatine Kinase 58 CK-MB (CK-2) 1.15 Troponin I < 0.012 Impressions: Chest X-Ray 06/25/18 11:46 IMPRESSION: NO ACUTE RADIOGRAPHIC FINDING IN THE CHEST. Head CT 06/25/18 11:46 IMPRESSION: CHRONIC CHANGES OF ATROPHY AND MICROVASCULAR ISCHEMIA. NO ACUTE PROCESS. EVIDENCE OF ACUTE STROKE: NO. Carotid Doppler Study 06/26/18 00:00 IMPRESSION: NO HEMODYNAMICALLY SIGNIFICANT STENOSIS. PATIENT REPORTS A STENT IN THE RIGHT INTERNAL CAROTID ARTERY BUT THIS COULD NOT BE VISUALIZED WITH DOPPLER IMAGING. Head MRI 06/27/18 00:00 IMPRESSION: Old infarcts. No acute findings. EVIDENCE OF ACUTE STROKE: NO. Transfer Plan - Time Spent with Patient Time spent with patient: Greater than 30 Minutes Qualifiers - * PATIENT BEING DISCHARGED WITH ANY OF THE FOLLOWING DIAGNOSIS: Stroke Stroke Pt being discharged on Anti-thrombolytic therapy?: Yes Stroke Pt being discharged on Anti-coagulation therapy?: No Reason(s) for not prescribing Anti-coagulation therapy:: Medical Contraindication - Not indicated Stroke Pt being discharged on Statins?: Yes Plan Time Spent: Greater than 30 Minutes
[2018-06-27 16:41] VITALS: BP 109/45
== END 2018-06-27 17:13 ==
LOC: ER 11:07 → EH 16:09 → 3W 18:50
PROVIDERS: ADMIT Emergency Medicine; ATTEND Emergency Medicine
DX: G45.9 Transient cerebral ischemic attack, unspecified (principal); G89.4 Chronic pain syndrome; E78.5 Hyperlipidemia, unspecified; Z88.8 Allergy status to other drugs, medicaments and biological substances; E11.59 Type 2 diabetes mellitus with other circulatory complications; I10 Essential (primary) hypertension; M48.00 Spinal stenosis, site unspecified; E03.9 Hypothyroidism, unspecified; I69.351 Hemiplegia and hemiparesis following cerebral infarction affecting right dominant side; Z79.899 Other long term (current) drug therapy; Z79.02 Long term (current) use of antithrombotics/antiplatelets; Z79.891 Long term (current) use of opiate analgesic; I67.9 Cerebrovascular disease, unspecified; Z98.890 Other specified postprocedural states
CPT/HCPCS: 93005; 99285; 36415; 87086; 84439; 82553; 82550; 84443; 85025; 80053; 81001; 84484; 80307; 93880; 70551; 71045; 70450; 93010; 97530; 97110; 97163; 97165; G0378 ×4; A9270 ×20; J1650 ×3; J3490 ×3; G8978; G8979; G8980; G8987; G8988; G8989

== ENCOUNTER 2018-07-06 13:59 | Emergency (ER) | payer MEDICARE, BC ==
--- NOTE | 2018-07-06 14:43 | ER Document Report ---
ED General - General Chief Complaint: Altered Mental Status Stated Complaint: DIZZINESS Time Seen by Provider: 07/06/18 14:25 Mode of Arrival: Medic Information source: Patient, Relative, Emergency Med Personnel, [facility] Records Notes: 78-year-old female with hypertension, hyperlipidemia, type 2 diabetes, depression, previous CVA presents with complaint of dizziness that started just prior to arrival. Patient states that she felt her blood was too thick to get to her head which caused her dizziness. She denies any headache, slurred speech , nausea, vomiting, leg and arm weakness. Patient was recently admitted to the hospital for a TIA where an MRI was obtained as well as carotid Doppler. Patient was discharged home with instructions to start Plavix, a statin. She states that today they stopped her Plavix for an endoscopy she will be undergoing on Monday and she believes that this is the reason that the blood was too thick to get to her head. Patient currently has no physical complaints. She is alert and oriented x3. Daughter is at the bedside and states that her sister called her and asked her to see her mother because she sounded confused earlier today. Patient is wheelchair-bound secondary to significant spinal stenosis. TRAVEL OUTSIDE OF THE [place] IN LAST 30 DAYS: No - HPI Onset: Just prior to arrival Onset/Duration: Sudden Quality of pain: No pain Associated symptoms: Other - Dizziness. denies: Chest pain, Shortness of breath Exacerbated by: Denies Relieved by: Denies Similar symptoms previously: Yes Recently seen / treated by doctor: Yes - 06/2018 - Related Data Allergies/Adverse Reactions: Penicillins Allergy (Verified 03/13/18 14:42) Andlmpb-Ikf-Ipt Reductase Inhibitor Allergy (Verified 03/13/18 21:38) Past Medical History - General Information source: Patient, Relative, Emergency Med Personnel, [facility] Records - Social History Smoking Status: Never Smoker Frequency of alcohol use: None Drug Abuse: None Lives with: [facility] Family History: Reviewed & Not Pertinent Patient has suicidal ideation: No Patient has homicidal ideation: No - Past Medical History Cardiac Medical History: Reports: Hx Hypercholesterolemia, Hx Hypertension Endocrine Medical History: Reports: Hx Diabetes Mellitus Type 2 Renal/ Medical History: Denies: Hx Peritoneal Dialysis Psychiatric Medical History: Reports: Hx Depression Past Surgical History: Reports: Hx Hysterectomy, Hx Orthopedic Surgery - Bilat carpal tunnel release, Hx Vascular Surgery - Stents Review of Systems - Review of Systems Notes: REVIEW OF SYSTEMS: CONSTITUTIONAL : Denies fever, chills, or sweats. Denies recent illness. Denies weight loss, recent hospitalizations. EENT: Denies visual changes, eye pain. Denies sore throat, oral lesions, difficulty swallowing. CARDIOVASCULAR: Denies chest pain. Denies palpitations. Denies lower extremity edema. RESPIRATORY: Denies cough. Denies shortness of breath, wheezing. GASTROINTESTINAL: Denies abdominal pain or distention. Denies nausea, vomiting , or diarrhea. Denies blood in vomitus, stools, or per rectum. Denies black, tarry stools. Denies constipation. GENITOURINARY: Denies difficulty urinating, painful urination, frequency, blood in urine, or vaginal discharge. MUSCULOSKELETAL: Denies back or neck pain or stiffness. Denies joint pain or swelling. SKIN: Denies rash, lesions or sores. HEMATOLOGIC : Denies easy bruising or bleeding. LYMPHATIC: Denies swollen glands. NEUROLOGICAL: Denies confusion or altered mental status. Denies loss of consciousness. Denies lightheadedness. Denies headache. Denies weakness or paralysis. Denies problems difficulty with ambulation, slurred speech. Denies sensory loss, numbness, or tingling. Denies seizures. PSYCHIATRIC: Denies anxiety or stress. Denies depression, suicidal ideation, or homicidal ideation. Denies visual or auditory hallucinations. Physical Exam - Vital signs Vitals: Temp Pulse Resp BP Pulse Ox 98.3 F 96 16 154/68 H 97 07/06/18 14:02 07/06/18 14:02 07/06/18 14:02 07/06/18 14:02 07/06/18 14:02 Interpretation: Hypertensive. No: Hypoxic - Notes Notes: PHYSICAL EXAMINATION: GENERAL: Well-appearing, well-nourished and in no acute distress. HEAD: Atraumatic, normocephalic. EYES: Pupils equal round and reactive to light, extraocular movements intact, conjunctiva are normal. ENT: Nares patent, oropharynx clear without exudates. Moist mucous membranes. NECK: Normal range of motion, supple without lymphadenopathy LUNGS: Breath sounds clear to auscultation bilaterally and equal. No wheezes rales or rhonchi. HEART: Regular rate and rhythm without murmurs ABDOMEN: Soft, nontender, nondistended abdomen. No guarding, no rebound. No masses appreciated. Female : deferred Musculoskeletal: Normal range of motion, no pitting or edema. No cyanosis. NEUROLOGICAL: Cranial nerves grossly intact. Normal speech, Normal sensory, motor exams. NIH-0 PSYCH: Normal mood, normal affect. SKIN: Warm, Dry, normal turgor, no rashes or lesions noted. Course - Re-evaluation Re-evalutation: Laboratory 07/06/18 07/06/18 07/06/18 14:29 14:29 14:29 WBC 10.4 RBC 4.40 Hgb 13.6 Hct 40.0 MCV 91 MCH 30.9 MCHC 34.0 RDW 15.1 H Plt Count 352 Seg Neutrophils % 70.1 Lymphocytes % 22.2 Monocytes % 5.1 Eosinophils % 2.1 Basophils % 0.5 Absolute Neutrophils 7.3 Absolute Lymphocytes 2.3 Absolute Monocytes 0.5 Absolute Eosinophils 0.2 Absolute Basophils 0.0 PT 12.6 INR 0.90 APTT 23.2 L Sodium Cancelled Potassium Cancelled Chloride Cancelled Carbon Dioxide Cancelled Anion Gap Cancelled BUN Cancelled Creatinine Cancelled Est GFR ( Amer) Cancelled Est GFR (Non-Af Amer) Cancelled Glucose Cancelled Calcium Cancelled Total Bilirubin Cancelled Direct Bilirubin Cancelled Neonat Total Bilirubin Cancelled Neonat Direct Bilirubin Cancelled Neonat Indirect Bili Cancelled AST Cancelled ALT Cancelled Alkaline Phosphatase Cancelled Creatine Kinase Cancelled CK-MB (CK-2) Troponin I Total Protein Cancelled Albumin Cancelled 07/06/18 07/06/18 07/06/18 14:29 15:30 15:30 WBC RBC Hgb Hct MCV MCH MCHC RDW Plt Count Seg Neutrophils % Lymphocytes % Monocytes % Eosinophils % Basophils % Absolute Neutrophils Absolute Lymphocytes Absolute Monocytes Absolute Eosinophils Absolute Basophils PT INR APTT Sodium 145.7 H Potassium 4.5 Chloride 109 H Carbon Dioxide 21 L Anion Gap 16 BUN 17 Creatinine 1.07 Est GFR ( Amer) > 60 Est GFR (Non-Af Amer) 50 L Glucose 104 Calcium 10.2 Total Bilirubin 0.3 Direct Bilirubin 0.2 Neonat Total Bilirubin Not Reportable Neonat Direct Bilirubin Not Reportable Neonat Indirect Bili Not Reportable AST 17 ALT 14 Alkaline Phosphatase 64 Creatine Kinase 34 CK-MB (CK-2) Cancelled 0.93 Troponin I Cancelled < 0.012 Total Protein 8.0 Albumin 4.5 Chest X-Ray 07/06/18 14:11 IMPRESSION: NO ACUTE RADIOGRAPHIC FINDING IN THE CHEST. Head CT 07/06/18 14:11 IMPRESSION: CHRONIC CHANGES OF ATROPHY AND MICROVASCULAR ISCHEMIA. NO ACUTE PROCESS. EVIDENCE OF ACUTE STROKE: NO. 07/06/18 14:43 78-year-old female presents with complaint of "I feel like my blood was too thick to get to my head", and dizziness. Patient arrives currently asymptomatic. Vital signs show mild hypertension otherwise normal. NIH is 0. Patient has no complaints or focal neurologic deficits. EKG was obtained and interpreted by me and shows normal sinus rhythm at a rate of 87. QTc 438. No evidence of ST elevation or T wave inversions. Previous medical records reviewed including an MRI performed 1 week ago, carotid ultrasound. MRI did not show any acute process but did show an old infarct. Doppler did not show any significant stenosis. Patient was started on Plavix and a statin. Patient has no significant laboratory findings. CT of the head was obtained then showed chronic microvascular ischemic changes. On reevaluation patient is still symptomatic free. I did discuss with her and the daughter that I do not believe that the patient experienced a TIA earlier. Even if the patient did experience a TIA she has been placed on the proper medications upon her last discharge. Daughter was encouraged to confirm with the [facility] facility that the patient is on the medications that were recommended and prescribed for her on her last discharge 1 week ago. Both the patient and daughter are comfortable with discharge home. Patient ambulated without difficulty. She tolerated fluids prior to discharge. Patient was evaluated and treated as appropriate for the patient's presenting symptoms and complaint, with consideration of any critical or life threatening conditions that may be associated with their obtained history and exam as noted above. All results were discussed with patient. Patient provided the opportunity to ask questions, and express concerns. Patient was educated on treatments based on their presumed diagnosis as noted above. At this time we will discharge the patient with return precautions and follow-up recommendations. Verbal discharge instructions given a the bedside. Medication warnings reviewed. Patient is in agreement with this plan and has verbalized understanding of return precautions. After careful consideration I feel that that patient can be safely discharged from the emergency department, they were advised to followup with a primary care physician in 2-3 days. Dictation on this chart was performed using voice recognition software and may result in unintended grammatical, spelling, syntax or errors. 07/06/18 14:44 07/07/18 00:05 07/07/18 20:27 - Vital Signs Vital signs: Temp Pulse Resp BP Pulse Ox 98.3 F 80 15 148/69 H 97 07/06/18 14:02 07/06/18 16:05 07/06/18 17:01 07/06/18 17:01 07/06/18 17:01 - Laboratory Result Diagrams: 07/06/18 14:29 07/06/18 15:30 Laboratory results interpreted by me: 07/06/18 07/06/18 07/06/18 14:29 14:29 15:30 RDW 15.1 H APTT 23.2 L Sodium 145.7 H Chloride 109 H Carbon Dioxide 21 L Est GFR (Non-Af Amer) 50 L - Diagnostic Test Radiology reviewed: Image reviewed, Reports reviewed - EKG Interpretation by Me EKG shows normal: Sinus rhythm Rate: Normal Rhythm: NSR When compared to previous EKG there are: No significant change Discharge - Discharge Clinical Impression: Elevated blood pressure reading Altered mental status Qualifiers: Altered mental status type: unspecified Qualified Code(s): R41.82 - Altered mental status, unspecified DM II (diabetes mellitus, type II), controlled Qualifiers: Diabetes mellitus care home insulin use: without care home use Diabetes mellitus complication status: without complication Qualified Code(s): E11.9 - Type 2 diabetes mellitus without complications Condition: Good Disposition: HOME, SELF-CARE Instructions: Altered Mental Status ([facility]) Additional Instructions: Please make sure that you are receiving the medications that you are discharged home on. This includes Plavix and a statin for your cholesterol. Your CAT scan showed chronic changes in your lab work was unremarkable today. Follow up with your [id number] for further care or return to the ED IMMEDIATELY if symptoms worsen or you have any concerns. If you cannot afford to follow up with your primary care physician a list of low cost clinics have been provided at the end of your discharge papers as well. Most prescribed medications have multiple side effects. The safest thing to do is when filling your prescription speak to your pharmacist regarding possible interactions with your normal home medications and over the counter medications such as Ibuprofen, Tylenol, Benadryl. If you experience any symptoms that cause you discomfort or concern you should discontinue the medication immediately and return to the emergency room or call your primary care physician. Forms: Elevated Blood Pressure Referrals: RICKY LEMA MD [Primary Care Provider] - Follow up as needed
[2018-07-06 14:46] LABS: ABSOLUTE EOSINOPHILS # (AUTO) 0.2 10^3/uL (0.0-0.6); ABSOLUTE LYMPHOCYTES (AUTO) 2.3 10^3/uL (0.5-4.7); ABSOLUTE MONOCYTES (AUTO) 0.5 10^3/uL (0.1-1.4); ABSOLUTE NEUT (AUTO) 7.3 10^3/uL (1.7-8.2); BASOPHILS % (AUTO) 0.5 % (0-2); EOSINOPHILS % (AUTO) 2.1 % (0-6); HEMOGLOBIN 13.6 g/dL (12.0-15.5); LYMPHOCYTES % (AUTO) 22.2 % (13-45); MEAN CORPUSCULAR HEMOGLOBIN 30.9 pg (27.0-33.4); MEAN CORPUSCULAR VOLUME 91 fl (80-97); MONOCYTES % (AUTO) 5.1 % (3-13); PARTIAL THROMBOPLASTIN TIME 23.2 SEC (23.5-35.8); PLATELET COUNT 352 10^3/uL (150-450); PROTHROMBIN TIME 12.6 SEC (11.4-15.4); RED CELL DISTRIBUTION WIDTH 15.1 % (11.5-14.0); SEGMENTED NEUTROPHILS % (AUTO) 70.1 % (42-78); TOTAL CELLS COUNTED % (AUTO) 100 %; WHITE BLOOD COUNT 10.4 10^3/uL (4.0-10.5)
--- NOTE | 2018-07-06 15:13 | RADIOLOGY REPORT (SQ) ---
EXAM DESCRIPTION: CHEST SINGLE VIEW COMPLETED DATE/TIME: 07/06/2018 2:47 pm REASON FOR STUDY: stroke s/s COMPARISON: None. EXAM PARAMETERS: NUMBER OF VIEWS: One view. TECHNIQUE: Single frontal radiographic view of the chest acquired. RADIATION DOSE: NA LIMITATIONS: None. FINDINGS: LUNGS AND PLEURA: No opacities, masses or pneumothorax. No pleural effusion. MEDIASTINUM AND HILAR STRUCTURES: No masses. Contour normal. HEART AND VASCULAR STRUCTURES: Heart normal in size. Normal vasculature. BONES: No acute findings. HARDWARE: None in the chest. OTHER: No other significant finding. IMPRESSION: NO ACUTE RADIOGRAPHIC FINDING IN THE CHEST. TECHNICAL DOCUMENTATION: JOB ID: [id number]- All Rights Reserved Reading location - IP/workstation name: [email or web address]
--- NOTE | 2018-07-06 15:18 | RADIOLOGY REPORT (SQ) ---
EXAM DESCRIPTION: CT HEAD WITHOUT COMPLETED DATE/TIME: 07/06/2018 3:09 pm REASON FOR STUDY: stroke s/s COMPARISON: None. TECHNIQUE: Axial images acquired through the brain without intravenous contrast. Images reviewed wi th bone, brain and subdural windows. Images stored on PACS. All CT scanners at this facility use dose modulation, iterative reconstruction, and/or weight based d osing when appropriate to reduce radiation dose to as low as reasonably achievable (ALARA). [facility]: Dose Right [facility]: CareDose [facility]: Dose Right [facility]: Teradose 4D [facility]: MOG RADIATION DOSE: CT Rad equipment meets quality standard of care and radiation dose reduction techniq ues were employed. CTDIvol: 53.2 mGy. DLP: 1017 mGy-cm.mGy. LIMITATIONS: None. FINDINGS: VENTRICLES: Prominent. CEREBRUM: No masses. No hemorrhage. No midline shift. Old left occipital and left parietal infarct s. Areas of low density in the white matter most likely due to chronic micro-vascular ischemic terrell e. No evidence for acute infarction. CEREBELLUM: No masses. No hemorrhage. No alteration of density. No evidence for acute infarction. EXTRAAXIAL SPACES: Age-related involutional change. No fluid collections. No masses. ORBITS AND GLOBE: No intra- or extraconal masses. Normal contour of globe without masses. CALVARIUM: No fracture. PARANASAL SINUSES: No fluid or mucosal thickening. SOFT TISSUES: No mass or hematoma. OTHER: No other significant finding. IMPRESSION: CHRONIC CHANGES OF ATROPHY AND MICROVASCULAR ISCHEMIA. NO ACUTE PROCESS. EVIDENCE OF ACUTE STROKE: NO. TECHNICAL DOCUMENTATION: JOB ID: [id number] Quality ID # [id number]: Final reports with documentation of one or more dose reduction techniques (e.g., Au tomated exposure control, adjustment of the mA and/or kV according to patient size, use of iterative reconstruction technique) 2010 [employer]- All Rights Reserved Reading location - IP/workstation name: [email or web address]
[2018-07-06 15:58] LABS: ALANINE AMINOTRANSFERASE 14 U/L (9-52); ALBUMIN 4.5 g/dL (3.5-5.0); ALKALINE PHOSPHATASE 64 U/L (38-126); ANION GAP 16 (5-19); ASPARTATE AMINO TRANSFERASE 17 U/L (14-36); BILIRUBIN,DIRECT 0.2 mg/dL (0.0-0.4); BILIRUBIN,TOTAL 0.3 mg/dL (0.2-1.3); BLOOD UREA NITROGEN 17 mg/dL (7-20); CALCIUM 10.2 mg/dL (8.4-10.2); CARBON DIOXIDE 21 mmol/L (22-30); CHLORIDE 109 mmol/L (98-107); CREATINE KINASE 34 U/L (30-135); GLUCOSE 104 mg/dL (75-110); POTASSIUM 4.5 mmol/L (3.6-5.0); SODIUM 145.7 mmol/L (137-145)
[2018-07-06 16:06] LABS: CREATINE KINASE MB 0.93 ng/mL (<4.55)
[2018-07-06 16:09] LABS: TROPONIN I < 0.012 ng/mL
[2018-07-06 17:06] VITALS: BP 148/69
--- NOTE | 2018-07-06 19:05 | EKG REPORT ---
SEVERITY:- NORMAL ECG - SINUS RHYTHM : Confirmed by: Zahida Johnson MD 06-Jul-2018 19:05:01
== END 2018-07-06 17:13 | disposition home or self-care (01) ==
LOC: ER 13:59
DX: R41.82 Altered mental status, unspecified (principal); R42 Dizziness and giddiness; I10 Essential (primary) hypertension; E11.9 Type 2 diabetes mellitus without complications; E78.5 Hyperlipidemia, unspecified; Z79.02 Long term (current) use of antithrombotics/antiplatelets
CPT/HCPCS: 36415; 70450; 71045; 80053; 82550; 82553; 84484; 85025; 85610; 85730; 93005; 93010; 99285

== ENCOUNTER 2018-07-13 19:42 | Emergency (ER) | payer MEDICARE, BC ==
--- NOTE | 2018-07-13 20:20 | ER Document Report ---
ED General - General Chief Complaint: Other Stated Complaint: WEAKNESS Time Seen by Provider: 07/13/18 20:18 Mode of Arrival: Medic Information source: Patient Notes: This is a 78-year-old female with a history of CVAs/TIAs, degenerative spine disease who presents to the emergency room with increased weakness, difficulty negotiating wheelchair due to her weakness, decreased p.o. intake. The symptoms have been going on for the past week and they have been progressive. TRAVEL OUTSIDE OF THE [place] IN LAST 30 DAYS: No - HPI Onset: Last week Onset/Duration: Gradual Quality of pain: No pain Severity: None Pain Level: Denies Associated symptoms: Weakness. denies: Chest pain, Fever, Nausea, Shortness of breath Exacerbated by: Denies Relieved by: Denies Similar symptoms previously: Yes Recently seen / treated by doctor: Yes - Related Data Allergies/Adverse Reactions: Penicillins Allergy (Verified 03/13/18 14:42) Uatledi-Bxm-Ofp Reductase Inhibitor Allergy (Verified 03/13/18 21:38) Past Medical History - General Information source: Patient - Social History Smoking Status: Never Smoker Cigarette use (# per day): No Chew tobacco use (# tins/day): No Frequency of alcohol use: None Drug Abuse: None Lives with: [facility] Family History: Reviewed & Not Pertinent Patient has suicidal ideation: No Patient has homicidal ideation: No - Past Medical History Cardiac Medical History: Reports: Hx Hypercholesterolemia, Hx Hypertension Endocrine Medical History: Reports: Hx Diabetes Mellitus Type 2 Renal/ Medical History: Denies: Hx Peritoneal Dialysis Psychiatric Medical History: Reports: Hx Depression Past Surgical History: Reports: Hx Hysterectomy, Hx Orthopedic Surgery - Bilat carpal tunnel release, Hx Vascular Surgery - Stents Review of Systems - Review of Systems Constitutional: denies: Chills, Fever EENT: No symptoms reported Cardiovascular: No symptoms reported Respiratory: No symptoms reported Gastrointestinal: No symptoms reported Genitourinary: No symptoms reported Female Genitourinary: No symptoms reported Musculoskeletal: No symptoms reported Skin: No symptoms reported Hematologic/Lymphatic: No symptoms reported Neurological/Psychological: See HPI Physical Exam - Vital signs Vitals: Temp Pulse Resp BP Pulse Ox 98.2 F 86 18 154/66 H 98 07/13/18 19:50 07/13/18 19:50 07/13/18 19:50 07/13/18 19:50 07/13/18 19:50 Notes: Physical exam: GENERAL: Patient is alert and does not appear to be in any significant distress. She does answer simple questions. She does appear to have some dementia. HEAD: Atraumatic, normocephalic. EYES: Pupils equal round and reactive to light, extraocular movements intact, sclera anicteric, conjunctiva are normal. ENT: TMs normal, nares patent, oropharynx clear without exudates. Moist mucous membranes. NECK: Bilateral CEA scars, normal range of motion, supple without obvious mass or JVD. LUNGS: Breath sounds clear to auscultation bilaterally and equal. No wheezes rales or rhonchi. HEART: Regular rate and rhythm without murmurs, rubs or gallops. ABDOMEN: Soft, normoactive bowel sounds. No tenderness to palpation. No guarding, no rebound. No masses appreciated. Rectal: Performed in the presence of a case mgr: Stool is brown, sent for study. EXTREMITIES: Normal range of motion, no pitting or edema. No clubbing or cyanosis. NEUROLOGICAL: Cranial nerves II through XII grossly intact. Normal speech, moving all extremities. Patient does have a good environmental marketer. She does have bilateral weakness to the lower extremities which sounds chronic given her significant degenerative spine disease. PSYCH: Normal mood, normal affect. SKIN: Warm, Dry, normal turgor, no rashes or lesions noted. Course - Re-evaluation Re-evalutation: 07/13/18 23:17 I had a long discussion with the patient. I do not suspect that she is infected at this time. Her lungs are clear, her abdomen is soft and nontender, her urine was clear, her skin is very clear. Her white count is normal. There is no metabolic reason for her increased weakness. Patient definitely seems somewhat depressed. Apparently during a recent admission her antidepressant was cut in half. She is now on the appropriate dose but is only been on it for about a week or so. I did discuss with the family that depression can cause cognitive dysfunction. I have advised him to avoid any type of antihistamines. Patient is on chronic pain meds due to her spinal stenosis but she is been on this for 10 years and certainly does not seem appropriate to start adjusting her pain medicine dose at this time. - Vital Signs Vital signs: Temp Pulse Resp BP Pulse Ox 98.4 F 81 20 154/65 H 97 07/13/18 22:14 07/13/18 22:14 07/13/18 22:14 07/13/18 22:14 07/13/18 22:14 - Laboratory Result Diagrams: 07/13/18 21:12 07/13/18 21:12 Laboratory results interpreted by me: 07/13/18 07/13/18 21:12 21:12 RDW 14.4 H Est GFR (Non-Af Amer) 52 L - Diagnostic Test Radiology reviewed: Image reviewed, Reports reviewed - CT of the head shows no acute stroke. There is no change from previous Discharge - Discharge Clinical Impression: Generalized weakness, Depressed mood Condition: Stable Disposition: HOME, SELF-CARE Additional Instructions: As we discussed this evening, the head CT showed no evidence of acute stroke or any changes from the previous one. The urine analysis showed no evidence of infection. A urine culture was sent and will take 2 days to come back. We will call if it is positive. The kidney function tests, electrolytes, liver function tests and white blood count were all normal. I have placed a copy of the CT report as well as all the labs in this discharge paperwork. I would follow-up with the [facility] is far as the prescribing of the pain medicine issue. Return to the emergency room for any concerns that Ms Braun is worsening weakness , slurred speech, or any concerns she is getting worse. Referrals: NANO WERNER MD [Primary Care Provider] - Follow up as needed
[2018-07-13 20:55] LABS: APPEARANCE,URINE CLEAR; BILIRUBIN,URINE NEGATIVE (NEGATIVE); COLOR,URINE YELLOW; GLUCOSE, URINE NEGATIVE (NEGATIVE); KETONES,URINE NEGATIVE (NEGATIVE); LEUKOCYTE ESTERASE,URINE NEGATIVE (NEGATIVE); NITRITE,URINE NEGATIVE (NEGATIVE); PROTEIN,URINE NEGATIVE (NEGATIVE); URINE SPECIFIC GRAVITY 1.014; UROBILINOGEN,URINE NEGATIVE mg/dL (<2.0)
[2018-07-13 21:29] LABS: ABSOLUTE BASOPHILS # (AUTO) 0.1 10^3/uL (0.0-0.2); ABSOLUTE EOSINOPHILS # (AUTO) 0.1 10^3/uL (0.0-0.6); ABSOLUTE LYMPHOCYTES (AUTO) 1.8 10^3/uL (0.5-4.7); ABSOLUTE MONOCYTES (AUTO) 0.6 10^3/uL (0.1-1.4); ABSOLUTE NEUT (AUTO) 6.8 10^3/uL (1.7-8.2); BASOPHILS % (AUTO) 0.7 % (0-2); EOSINOPHILS % (AUTO) 0.9 % (0-6); HEMATOCRIT 38.2 % (36.0-47.0); HEMOGLOBIN 12.7 g/dL (12.0-15.5); LYMPHOCYTES % (AUTO) 19.2 % (13-45); MEAN CORPUSCULAR HEMOGLOBIN 30.2 pg (27.0-33.4); MEAN CORPUSCULAR HGB CONC 33.2 g/dL (32.0-36.0); MEAN CORPUSCULAR VOLUME 91 fl (80-97); MONOCYTES % (AUTO) 6.7 % (3-13); PLATELET COUNT 330 10^3/uL (150-450); RED BLOOD COUNT 4.19 10^6/uL (3.72-5.28); RED CELL DISTRIBUTION WIDTH 14.4 % (11.5-14.0); SEGMENTED NEUTROPHILS % (AUTO) 72.5 % (42-78); TOTAL CELLS COUNTED % (AUTO) 100 %; WHITE BLOOD COUNT 9.4 10^3/uL (4.0-10.5)
[2018-07-13 21:43] LABS: ALANINE AMINOTRANSFERASE 16 U/L (9-52); ALBUMIN 4.3 g/dL (3.5-5.0); ALKALINE PHOSPHATASE 66 U/L (38-126); ANION GAP 14 (5-19); ASPARTATE AMINO TRANSFERASE 18 U/L (14-36); BILIRUBIN,DIRECT 0.3 mg/dL (0.0-0.4); BILIRUBIN,TOTAL 0.3 mg/dL (0.2-1.3); BLOOD UREA NITROGEN 19 mg/dL (7-20); CALCIUM 9.8 mg/dL (8.4-10.2); CARBON DIOXIDE 22 mmol/L (22-30); CHLORIDE 106 mmol/L (98-107); GLUCOSE 108 mg/dL (75-110); POTASSIUM 4.7 mmol/L (3.6-5.0); SODIUM 142.3 mmol/L (137-145); TOTAL PROTEIN 7.5 g/dL (6.3-8.2)
[2018-07-13 22:15] VITALS: BP 154/65
--- NOTE | 2018-07-13 22:30 | RADIOLOGY REPORT (SQ) ---
EXAM DESCRIPTION: CT HEAD WITHOUT IV CONTRAST COMPLETED DATE/TME: 07/13/2018 21:51 CLINICAL HISTORY: 78 years, Female, altered mental status COMPARISON: CT head 07/06/2018 TECHNIQUE: Axial images of the head were performed without the use of intravenous contrast, with sagittal and coronal reformatted images. Images stored on PACS. All CT scanners at this facility use dose modulation, iterative reconstruction, and/or weight based dosing when appropriate to reduce radiation dose to as low as reasonably achievable (ALARA). [facility]: Dose Right [facility]: CareDose [facility]: Dose Right [facility]: Teradose 4D [facility]: ReClaims LIMITATIONS: None. FINDINGS: No evidence of acute hemorrhage or infarct. No evidence of mass or hydrocephalus. There is cortical atrophy and chronic white matter ischemic changes. There is a left parieto-occipital encephalomalacia. There are bilateral old lacunar infarcts. There is no significant change, as compared with the prior CT scan. IMPRESSION: No acute finding. TECHNICAL DOCUMENTATION: Quality ID # 436: Final reports with documentation of one or more dose reduction techniques (e.g., Automated exposure control, adjustment of the mA and/or kV according to patient size, use of iterative reconstruction technique) 2010 [employer]- All Rights Reserved
== END 2018-07-13 23:12 | disposition home or self-care (01) ==
LOC: ER 19:42
DX: R53.1 Weakness (principal); F32.9 Major depressive disorder, single episode, unspecified; I10 Essential (primary) hypertension; E11.9 Type 2 diabetes mellitus without complications; M48.00 Spinal stenosis, site unspecified; Z79.899 Other long term (current) drug therapy; Z88.0 Allergy status to penicillin; Z86.73 Personal history of transient ischemic attack (TIA), and cerebral infarction without residual deficits; Z88.8 Allergy status to other drugs, medicaments and biological substances
CPT/HCPCS: 36415; 51701; 70450; 80053; 81001; 82272; 85025; 87086; 99285

== ENCOUNTER 2018-07-14 16:28 | Emergency (ER) | payer MEDICARE, BC ==
[2018-07-14 17:38] LABS: ABSOLUTE BASOPHILS # (AUTO) 0.1 10^3/uL (0.0-0.2); ABSOLUTE EOSINOPHILS # (AUTO) 0.1 10^3/uL (0.0-0.6); ABSOLUTE MONOCYTES (AUTO) 0.7 10^3/uL (0.1-1.4); ABSOLUTE NEUT (AUTO) 6.9 10^3/uL (1.7-8.2); BASOPHILS % (AUTO) 1.3 % (0-2); HEMATOCRIT 38.7 % (36.0-47.0); HEMOGLOBIN 12.8 g/dL (12.0-15.5); LYMPHOCYTES % (AUTO) 20.2 % (13-45); MEAN CORPUSCULAR HEMOGLOBIN 30.2 pg (27.0-33.4); MEAN CORPUSCULAR VOLUME 92 fl (80-97); MONOCYTES % (AUTO) 6.7 % (3-13); PLATELET COUNT 346 10^3/uL (150-450); RED BLOOD COUNT 4.23 10^6/uL (3.72-5.28); RED CELL DISTRIBUTION WIDTH 14.7 % (11.5-14.0); SEGMENTED NEUTROPHILS % (AUTO) 70.8 % (42-78); TOTAL CELLS COUNTED % (AUTO) 100 %; WHITE BLOOD COUNT 9.8 10^3/uL (4.0-10.5)
--- NOTE | 2018-07-14 18:00 | ER Document Report ---
ED General - General Chief Complaint: Altered Mental Status Stated Complaint: ALTERED MENTAL STATUS Time Seen by Provider: 07/14/18 16:35 Mode of Arrival: Wheelchair Information source: Relative Notes: Patient is a 78-year-old female who comes back to the emergency room accompanied by her daughter who is concerned the patient may be having more TIAs. Patient was seen here and worked up extensively last night for a possible stroke or TIA. CT was "inconclusive". In that the CT report showed no evidence of acute hemorrhage or infarct no obvious evidence of mass or hydrocephalus. There is cortical atrophy and chronic white matter ischemic changes which states in this impression no acute findings. Tonight patient was with her daughter and the daughter got concerned when she was unable to feel or move her left side. Patient is wheelchair-bound with the exception of occasionally she can get up and transfer from the wheelchair to the walker and walker to the toilet. However she could not feel her left arm stuck up behind her and she could not put any weight on her left foot. Daughter was concerned that this may be a presentation of another TIA. She also relates the fact that earlier today patient thought she was having lunch with her parents. Daughter is just wanting some kind of a clarity as to how to determine whether patient is having a TIA or it is more advanced stages of her dementia. Originally 1 week ago patient was cognitive and this week she is not. Originally also started this office patient was taken off her Plavix a little over a week ago because she is going to have a colonoscopy done this coming Monday and patient did not feel comfortable being off her Plavix after having the TIA so she decided not to have the colonoscopy and restart her Plavix. Patient denies any shortness of breath or chest pain. She can answer basic questions and at times she can run for since is. She does know how old she is she does know her daughter's name she does know she is in a hospital but yet she does not know who the president is does not want to cooperate with a neurologic testing. TRAVEL OUTSIDE OF THE [place] IN LAST 30 DAYS: No - HPI Onset: Just prior to arrival Onset/Duration: Sudden, Gone Quality of pain: No pain Severity: Mild Pain Level: 1 Associated symptoms: None Exacerbated by: Denies Relieved by: Denies Similar symptoms previously: Yes Recently seen / treated by doctor: Yes - Related Data Allergies/Adverse Reactions: Penicillins Allergy (Verified 03/13/18 14:42) Mjzlccy-Zjt-Zgr Reductase Inhibitor Allergy (Verified 03/13/18 21:38) Past Medical History - General Information source: Relative - Social History Smoking Status: Former Smoker Cigarette use (# per day): No Chew tobacco use (# tins/day): No Smoking Education Provided: No Frequency of alcohol use: None Drug Abuse: None Family History: Reviewed & Not Pertinent Patient has suicidal ideation: No Patient has homicidal ideation: No - Past Medical History Cardiac Medical History: Reports: Hx Hypercholesterolemia, Hx Hypertension Endocrine Medical History: Reports: Hx Diabetes Mellitus Type 2 Renal/ Medical History: Denies: Hx Peritoneal Dialysis Psychiatric Medical History: Reports: Hx Depression Past Surgical History: Reports: Hx Hysterectomy, Hx Orthopedic Surgery - Bilat carpal tunnel release, Hx Vascular Surgery - Stents Review of Systems - Review of Systems Notes: PHYSICAL EXAMINATION: GENERAL: Patient is a well-nourished well-developed 78-year-old female who is in no apparent distress. Physical exam patient answers questions appropriately if there are simple questions. Complex question she is having difficulty ascertaining. If you distract patient she will do the neurologic testing she will lift her legs that she will smile for you she will lift her eyebrows she will squint for a however if you ask her directly to do so she has an attitude about it. There is times when you talk. It seems like you are talking through her. Patient has good bilateral upper and lower extremity strength. HEAD: Atraumatic, normocephalic. EYES: Pupils equal round and reactive to light, extraocular movements intact, conjunctiva are normal. ENT: Nares patent, oropharynx clear without exudates. Moist mucous membranes. NECK: Normal range of motion, supple without lymphadenopathy LUNGS: Breath sounds clear to auscultation bilaterally and equal. No wheezes rales or rhonchi. HEART: Regular rate and rhythm without murmurs ABDOMEN: Soft, nontender, nondistended abdomen. No guarding, no rebound. No masses appreciated. Female : deferred Musculoskeletal: Normal range of motion, no pitting or edema. No cyanosis. NEUROLOGICAL: Normal speech. Normal sensory, motor exams physical exam also shows patient has been bilateral lower extremity sensation which are equal. There is no saddle paresthesia that is noted. Patient has good strength against resistance in the legs and knee area with good strength against resistance. PSYCH: Appropriate mood SKIN: Warm, Dry, normal turgor, no rashes or lesions noted. Constitutional: No symptoms reported EENT: No symptoms reported Cardiovascular: No symptoms reported Respiratory: No symptoms reported Gastrointestinal: No symptoms reported Genitourinary: No symptoms reported Female Genitourinary: No symptoms reported Musculoskeletal: No symptoms reported Skin: No symptoms reported Hematologic/Lymphatic: No symptoms reported Neurological/Psychological: Weakness, Headaches, Speech impairment -: Yes All other systems reviewed and negative Physical Exam - Vital signs Vitals: Temp Pulse Resp BP Pulse Ox 98.2 F 82 15 146/64 H 94 07/14/18 16:33 07/14/18 16:33 07/14/18 16:33 07/14/18 16:33 07/14/18 16:33 Interpretation: Hypertensive - Notes Notes: PHYSICAL EXAMINATION: GENERAL: Patient is well-nourished well-developed 78-year-old obese female no apparent distress at this time. Patient does appear to be uncomfortable. HEAD: Atraumatic, normocephalic. EYES: Pupils equal round and reactive to light, extraocular movements intact, conjunctiva are normal. ENT: Nares patent, oropharynx clear without exudates. Moist mucous membranes. NECK: Normal range of motion, supple without lymphadenopathy LUNGS: Breath sounds clear to auscultation bilaterally and equal. No wheezes rales or rhonchi. HEART: Regular rate and rhythm without murmurs ABDOMEN: Soft, nontender, nondistended abdomen. No guarding, no rebound. No masses appreciated. Female : deferred Musculoskeletal: Normal range of motion, no pitting or edema. No cyanosis. NEUROLOGICAL:. Normal speech Normal sensory, motor exams further examination of patient's lower extremities and upper extremities shows she has good strength against resistance. She has good DTRs in the lower extremities as well as the upper extremities. Vascular exam is also normal. She has good dorsalis pedal pulses as well as good popliteal and femoral pulses. PSYCH: Normal mood, normal affect. SKIN: Warm, Dry, normal turgor, no rashes or lesions noted. Course - Re-evaluation Re-evalutation: 07/14/18 18:28 Patient's NIH stroke scale is difficult to determine because she is so obstinate you cannot tell whether she cannot decide what it is or the next moment she tells you what it is. When necessary at this point patient's NIH stroke scale is negative. to give a score she is at 0. Patient's CT came back same as last night. No acute findings or changes. Her labs all look good. I went in and talk to the daughter and I offered her admission or at least for me to contact the hospitalist to see if they could have her admitted and watched for 24 hours. Daughter asked me if there was anything they would do for her that we would not have done already and my answer is no. Patient's daughter upset because she wants to be able to handle her mother's problems however at this point whether patient has TIAs or advanced age dementia it does not make a huge amount of difference at this time. Patient is having loose at times which she can answer and seemed like her normal self and then she can turn around and then a few moments later be totally lost. She is advancing with accelerated dementia as far as I am concerned at this point time. The daughter asked when she would know whether to bring her back to the hospital or not and I informed her that question that I can answer for her. But even if patient came back with a CVA there is limited amount of things we could do for her at this stage in her life. I did talk to her that there would be always the option of adding on the newer anticoagulants but when you do that you increase risk of bleeding and that can be just as bad if not worse so at present believe patient is being treated appropriately with the Plavix. Again I offered to have discussed the case with the hospitalist to see if we could have admission patient's daughter has elected to take patient back home. I do believe this is the right outcome at this time. 07/14/18 18:52 07/14/18 18:58 Daughter is also indicated that currently she is staying at a assisted living facility the patient is taking care of primarily her own needs. There family is looking into moving her to a more skilled kind of setting within the next few days. They have come to the conclusion that she will not be able to take care of herself any further. The daughter also tells me that where she is staying currently they have been erratic and given her her medications and erratic giving her Percocet. Daughter states that she also indicates that she used to be able to give you the exact moment her Percocet was due and if she missed it by a second or 2 she was upset her blood pressure went up. Daughter states that she has not asked for Percocet in over a week. This is more indication to the daughter that this is more Alzheimer's presentation. 07/14/18 19:31 The rest the patient's labs came back 100% normal. I went back into the room patient is now awake alert and talking normal. Seems that getting her pain medications seem to perk her up. Daughter is now ready for her to go home as is the patient. They will pursue getting her into a more skilled facility rather than an assisted living. - Vital Signs Vital signs: Temp Pulse Resp BP Pulse Ox 98.2 F 87 12 170/75 H 96 07/14/18 16:33 07/14/18 18:00 07/14/18 19:01 07/14/18 19:01 07/14/18 19:01 - Laboratory Result Diagrams: 07/14/18 17:20 07/14/18 18:40 Laboratory results interpreted by me: 07/14/18 07/14/18 17:20 18:40 RDW 14.7 H Est GFR ( Amer) 53 L Est GFR (Non-Af Amer) 44 L Discharge - Discharge Clinical Impression: Rapidly progressive dementia, TIA (transient ischemic attack) Condition: Stable Disposition: HOME-ASSISTED LIVING Instructions: Dementia ([facility]), Transient Ischemic Attack ([facility]) Additional Instructions: At this point suggest delving into the possibility of more direct care than assisted living type facilities. Continue all her current medications and is on a regular scheduled basis. A lot of times when we inadvertently change the schedule patients get upset and seem to be more altered than they are. When you change a schedule you change what is comfortable for them. Should you have any concerns or problems return to ER for a recheck. Forms: Elevated Blood Pressure Referrals: NANO WERNER MD [Primary Care Provider] - Follow up as needed
--- NOTE | 2018-07-14 18:13 | RADIOLOGY REPORT (SQ) ---
EXAM DESCRIPTION: CT HEAD WITHOUT COMPLETED DATE/TIME: 07/14/2018 5:54 pm REASON FOR STUDY: Altered mental status COMPARISON: 07/13/2018 and earlier TECHNIQUE: Axial images acquired through the brain without intravenous contrast. Images reviewed wi th bone, brain and subdural windows. Additional sagittal and coronal reconstructions were generated. Images stored on PACS. All CT scanners at this facility use dose modulation, iterative reconstruction, and/or weight based d osing when appropriate to reduce radiation dose to as low as reasonably achievable (ALARA). [facility]: Dose Right [facility]: CareDose [facility]: Dose Right [facility]: Teradose 4D [facility]: [employer] RADIATION DOSE: CT Rad equipment meets quality standard of care and radiation dose reduction techniq ues were employed. CTDIvol: 53.2 mGy. DLP: 1017 mGy-cm. mGy. LIMITATIONS: Motion degraded exam. FINDINGS: VENTRICLES: Prominent ventricles secondary to involutional atrophy. CEREBRUM: No masses. No hemorrhage. No midline shift. No evidence for acute infarction. Unchanged moderate scattered supratentorial hypodensities. Unchanged left parieto-occipital encephalomalacia. 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 Physiologic calcifications of the right ba eve ganglia. CEREBELLUM: No masses. No hemorrhage. No alteration of density. No evidence for acute infarction. EXTRAAXIAL SPACES: No fluid collections. No masses. ORBITS AND GLOBE: No intra- or extraconal masses. Normal contour of globe without masses. CALVARIUM: No fracture. PARANASAL SINUSES: No fluid or mucosal thickening. SOFT TISSUES: No mass or hematoma. OTHER: No other significant finding. IMPRESSION: 1. Motion degraded exam. No acute intracranial findings. 2. Chronic findings, as detailed above. EVIDENCE OF ACUTE STROKE: NO. COMMENT: Quality ID # [id number]: Final reports with documentation of one or more dose reduction techniques (e.g., Automated exposure control, adjustment of the mA and/or kV according to patient size, use of iterative reconstruction technique) TECHNICAL DOCUMENTATION: JOB ID: [id number] [employer]- All Rights Reserved Reading location - IP/workstation name: [email or web address]
[2018-07-14] MEDS ORDERED: OXYCODONE-ACETAMINOPHEN 5-325 MG TABLET PO ONE (18:51)
[2018-07-14 19:08] LABS: ALANINE AMINOTRANSFERASE 24 U/L (9-52); ALBUMIN 4.5 g/dL (3.5-5.0); ALKALINE PHOSPHATASE 70 U/L (38-126); ANION GAP 15 (5-19); ASPARTATE AMINO TRANSFERASE 20 U/L (14-36); BILIRUBIN,DIRECT 0.3 mg/dL (0.0-0.4); BILIRUBIN,TOTAL 0.4 mg/dL (0.2-1.3); BLOOD UREA NITROGEN 18 mg/dL (7-20); CALCIUM 10.2 mg/dL (8.4-10.2); CARBON DIOXIDE 23 mmol/L (22-30); CHLORIDE 106 mmol/L (98-107); GLUCOSE 106 mg/dL (75-110); POTASSIUM 4.1 mmol/L (3.6-5.0); SODIUM 143.8 mmol/L (137-145); TOTAL PROTEIN 8.1 g/dL (6.3-8.2)
[2018-07-14 19:24] VITALS: BP 170/75
--- NOTE | 2018-07-15 09:56 | EKG REPORT ---
SEVERITY:- ABNORMAL ECG - SINUS RHYTHM FIRST DEGREE AV BLOCK : Confirmed by: Hermes Ramires MD 15-Jul-2018 09:56:16
== END 2018-07-14 19:55 | disposition home health service (06) ==
LOC: ER 16:28
DX: G45.9 Transient cerebral ischemic attack, unspecified (principal); F03.90 Unspecified dementia, unspecified severity, without behavioral disturbance, psychotic disturbance, mood disturbance, and anxiety; R41.82 Altered mental status, unspecified; E78.00 Pure hypercholesterolemia, unspecified; I10 Essential (primary) hypertension; E11.9 Type 2 diabetes mellitus without complications; Z88.0 Allergy status to penicillin; Z86.73 Personal history of transient ischemic attack (TIA), and cerebral infarction without residual deficits; Z90.710 Acquired absence of both cervix and uterus
CPT/HCPCS: 93005; 99285; 36415; 82962; 83735; 85025; 80053; 84484; 70450; 93010; A9270